=== PATIENT | male | born 1935 | race Asian ===

== ENCOUNTER 2018-10-02 15:12 | Inpatient (IN) | payer MEDICARE, OTHER ==
[~2018-10-02] VITALS: Ht 170.2 cm; Wt 51.2 kg
[~2018-10-02 15:12] MED LIST: ALBU18HF IH; BECL8.7A5 IH; CEPH-443 PO
[2018-10-02] MEDS ORDERED: ASPIRIN 81 MG TAB PO STA (15:52)
--- NOTE | 2018-10-02 16:13 | ERD ---
ER Documentation Chief Complaint Chief Complaint FROM PMD EVAL OF SOB, CP, AP. HX OF COPD HPI 83-year-old male with a history of COPD sent in by his primary care physician Dr. Izaguirre for evaluation. Patient has had a cough for 1 week with associated chest pain and shortness of breath. He denies any associated fevers. He has phlegm that is yellow without any blood. Chest pain is mostly with coughing. No recent travel. ROS All systems reviewed and are negative except as per history of present illness. Medications Home Meds Reported Medications Omeprazole* (Omeprazole*) 40 Mg Capsule.dr, 40 MG PO DAILY, #30 CAP 10/02/18 Montelukast Sodium* (Montelukast Sodium*) 10 Mg Tablet, 10 MG PO QHS, #30 TAB 10/02/18 Fluticasone-Vilanterol (Breo Ellipta Inhaler) 100-25 Mcg/Actuation Aer.pow.ba, 1 PUFF INHALATION DAILY, #1 INHALER 10/02/18 Tamsulosin Hcl* (Tamsulosin Hcl*) 0.4 Mg Cap.er.24h, 0.4 MG PO HS, CAP 10/02/18 Discontinued Reported Medications Albuterol Sulfate* (Ventolin HFA*) 18 Gm Hfa.aer.ad, 18 GM IH PRN 11/08/11 Beclomethasone Dip* (Qvar 80*) 7.3 Gm Inha, 7.3 GM IH BID 11/08/11 Discontinued Scripts Cephalexin* (Keflex*) 500 Mg Capsule, 500 MG PO BID for 7 Days, CAP Prov:LEONOR DICKINSON MD 04/04/15 Allergies Allergies: Coded Allergies: No Known Allergies (Verified Allergy, Unknown, 10/02/18) PMhx/Soc History of Surgery: Yes (prostate) Anesthesia Reaction: No Hx Neurological Disorder: No Hx Respiratory Disorders: Yes (ASTMA) Hx Cardiac Disorders: Yes (HIGH CHOLESTEROL) Hx Psychiatric Problems: No Hx Miscellaneous Medical Probl: No Hx Alcohol Use: No Hx Substance Use: No Hx Tobacco Use: Yes (quit 2002) FmHx Family History: No diabetes Physical Exam Vitals Vital Signs Date Temp Pulse Resp B/P (MAP) Pulse Ox O2 O2 Flow FiO2 Time Delivery Rate 10/02/18 Nasal 2 16:20 Cannula 10/02/18 99.4 91 19 141/63 94 15:14 (89) Physical Exam Const: No acute distress, nontoxic Head: Atraumatic Eyes: Normal Conjunctiva ENT: Normal External Ears, Nose and Mouth. Neck: Full range of motion. No meningismus. Resp: Diminished breath sounds at the bases, left worse than right. No wheezing or rales Cardio: Regular rate and rhythm, no murmurs Abd: Soft, non tender, non distended. Normal bowel sounds Skin: No petechiae or rashes Back: No midline or flank tenderness Ext: No cyanosis, or edema Neur: Awake and alert Psych: Normal Mood and Affect Result Diagram: 10/02/18 1619 10/02/18 1619 Results 24 hrs Laboratory Tests Test 10/02/18 16:19 White Blood Count 13.4 10^3/ul Red Blood Count 3.18 10^6/ul Hemoglobin 9.3 g/dl Hematocrit 29.3 % Mean Corpuscular Volume 92.1 fl Mean Corpuscular Hemoglobin 29.2 pg Mean Corpuscular Hemoglobin Concent 31.7 g/dl Red Cell Distribution Width 12.9 % Platelet Count 380 10^3/UL Mean Platelet Volume 8.2 fl Immature Granulocytes % 0.700 % Neutrophils % 92.4 % Lymphocytes % 3.2 % Monocytes % 3.3 % Eosinophils % 0.1 % Basophils % 0.3 % Nucleated Red Blood Cells % 0.0 /100WBC Immature Granulocytes # 0.100 10^3/ul Neutrophils # 12.3 10^3/ul Lymphocytes # 0.4 10^3/ul Monocytes # 0.4 10^3/ul Eosinophils # 0.0 10^3/ul Basophils # 0.0 10^3/ul Nucleated Red Blood Cells # 0.0 10^3/ul Sodium Level 139 mmol/L Potassium Level 4.3 mmol/L Chloride Level 102 mmol/L Carbon Dioxide Level 26 mmol/L Anion Gap 11 Blood Urea Nitrogen 37 mg/dl Creatinine 2.82 mg/dl Est Glomerular Filtrat Rate mL/min mL/min Glucose Level 139 mg/dl Calcium Level 9.3 mg/dl Troponin I < 0.012 ng/ml Current Medications Medications Dose Sig/Lj Start Time Status Last (Trade) Ordered Route PRN Stop Time Admin Dose Reason Admin Aspirin 162 mg ONCE STAT 10/02/18 DC 10/02/18 (Aspirin) PO 15:52 16:02 10/02/18 15:53 Sodium 1,420 ml BOLUS OVER 2 10/02/18 DC 10/02/18 Chloride HOURS STAT 16:48 17:03 (NS) IV* 10/02/18 16:50 Ceftriaxone 50 ml @ ONCE STAT 10/02/18 DC 10/02/18 Sodium 100 mls/hr IVPB 16:48 17:00 10/02/18 17:17 Azithromycin 250 ml @ ONCE STAT 10/02/18 DC 10/02/18 250 mls/hr IV 16:48 17:36 10/02/18 17:47 Procedures/MDM EMERGENT LABS AND DIAGNOSTIC STUDIES: Lab Results above were reviewed and interpreted by me. CBC: Leukocytosis, mild anemia BMP: Elevated BUN and creatinine, consistent with renal insufficiency of unknown chronicity. No evidence of electrolyte abnormality, hypoglycemia Troponin within normal limits, not indicative of cardiac ischemia Lactate within normal limits without evidence of sepsis or tissue hypoperfusion 12-lead EKG #1 was interpreted by Roxie Venegas MD: Normal Sinus Rhythm with ventricular rate of 87 beats per minute Normal axis Normal intervals Diffuse ST depression with no ST elevations. No acute STEMI but abnormal EKG with possible ischemia 12-lead EKG #2 was interpreted by Roxie Venegas MD: Normal Sinus Rhythm with ventricular rate of 87 beats per minute Normal axis Normal intervals Diffuse ST depression with no ST elevations. No acute STEMI but abnormal EKG with possible ischemia Radiology Results as interpreted by Radiology below were reviewed by Dorene Venegas MD: Chest x-ray: Bilateral pneumonia Initial Nursing notes reviewed. Previous Medical Records requested via the Electronic Health Record. EMERGENCY DEPARTMENT COURSE / MEDICAL DECISION MAKING: Patient is presenting with bilateral pneumonia on chest x-ray with no evidence of bronchospasm on exam. There is no evidence of severe sepsis or septic shock. IV fluids and broad-spectrum antibiotics were given. I doubt acute coronary syndrome. There is no sign of COPD exacerbation at this time. Patient's infectious symptoms have not stabilized and the patient is at risk of rapid decompensation. The patient will be admitted for careful hydration, antibiotic therapy, and infectious source control. Severe Sepsis Assessment: Infectious Source: Community acquired pneumonia End organ damage indicated by: Home Staging Specialist > 2.0 Severe Sepsis Managment: Blood Cultures X 2 before broad spectrum antibiotics initiated within 3 hours of recognition. 30 ml/kg NS bolus Completed Initial Lactate: Normal Repeat Lactate not indicated as initial < 2.0 Critical Care: Time: 35 minutes Treatments/Evaluations: Emergent fluid management, while maintaining close respiratory support. Immediate broad spectrum antibiotic therapy. Simultaneous assessment for possible sources in order to direct therapy. Consideration for invasive and chemical support to prevent respiratory or cardiac collapse. Septic Shock Assessment (1 hour post 30 ml/kg fluid bolus): Hypotension (SBP < 90 or 40 mmHg drop, MAP < 65): No Lactic acid > 4.0 no Accepting Care Team: Current data and ongoing care discussed. Time: Time of admission Primary Provider: Dr. Izaguirre Departure Diagnosis: Primary Impression: Sepsis Sepsis type: sepsis due to unspecified organism Qualified Codes: A41.9 - Sepsis, unspecified organism Additional Impressions: Community acquired pneumonia Laterality: unspecified laterality Qualified Codes: J18.9 - Pneumonia, unspecified organism Renal failure Renal failure chronicity: unspecified chronicity Qualified Codes: N19 - Unspecified kidney failure Condition: ARPAN Mccain MD Oct 02, 2018 16:13
[2018-10-02] MEDS ORDERED: TAMS0.4C2 PO (16:17)
[2018-10-02] MEDS ORDERED: MONT10TA24 PO (16:18)
[2018-10-02] MEDS ORDERED: FLUT1AER INHALATION (16:18)
[2018-10-02] MEDS ORDERED: OMEP40CA6 PO (16:19)
[2018-10-02] MEDS ORDERED: AZITHROMYCIN 500MG/NS (PMX) 250 ML IV STA (16:48)
[2018-10-02] MEDS ORDERED: SODIUM CHLORIDE 0.9% 1L BAG IV* STA (16:48)
[2018-10-02] MEDS ORDERED: CEFTRIAXONE 1 GM/50 ML (PMX) 50 ML IVPB STA (16:48)
[2018-10-02] MEDS ORDERED: ACETAMINOPHEN 325 MG TAB PO PRN (17:30)
[2018-10-02] MEDS ORDERED: ONDANSETRON 4 MG INJ IV PRN (17:30)
--- NOTE | 2018-10-02 19:00 | NUR ---
Patient arrived to floor with family at bedside. VSS. Oriented to room. No voiced complaints at this time
[2018-10-02] MEDS ORDERED: ACETAMINOPHEN 500 MG TAB PO PRN (20:00)
--- NOTE | 2018-10-02 20:00 | NUR ---
PATIENT ARRIVED ON THE UNIT AT 1900 . PATIENT ALERT AND ORIENTED . DENIES ANY PAIN AND DISCOMFORT AT THIS TIME. V/S STABLE .ORIENTED PATIENT TO THE ENVIRONMENT . CALL LIGHTS WITHIN REACH . BED IN LOW POSITION . INSTRUCTED PATIENT TO USE CALL LIGHTS FOR ASSISTANCE . PATIENT VERBALIZED UNDERSTANDING . NOTIFIED DR. VIVAS OF PATIENTS ADMISSION TO THE UNIT . ADMISSION ORDERS RECEIVED AND CARRIED OUT . ROUTINE ADMISSION CARE RENDERED . ASSESSMENT DONE . SKIN ASSESSMENT AND PHOTOS TAKEN DONE PER POLICY . WILL CONTINUE TO MONITOR .
[2018-10-02 20:15] VITALS: Ht 170.2 cm; Wt 51.2 kg
[2018-10-02 20:27] VITALS: BP 138/65; PULSE 86; RESP 18
[2018-10-02] MEDS: ALBUTEROL/IPRATROPIUM (NEB) 3 ML AMP HHN SCH (20:44)
[2018-10-02] MEDS: D5W-0.45 NACL + KCL 20 MEQ 1,000 ML IV SCH (21:26)
[2018-10-02] MEDS: TAMSULOSIN (SR) 0.4 MG CAP PO SCH (21:26)
[2018-10-02] MEDS: MONTELUKAST 10 MG TAB PO SCH (21:26)
[2018-10-02] MEDS: FLUTICASONE/VILANTEROL 100-25 INH SCH (21:27)
[2018-10-02] MEDS: ENOXAPARIN 30 MG/0.3 ML SYG SC SCH (21:30)
[2018-10-03 03:03] VITALS: BP 111/63; PULSE 71; RESP 20
[2018-10-03] MEDS: PANTOPRAZOLE (EC) 40 MG TAB PO SCH (06:10)
[2018-10-03] MEDS: FLUTICASONE/VILANTEROL 100-25 INH SCH (08:19)
[2018-10-03] MEDS: ALBUTEROL/IPRATROPIUM (NEB) 3 ML AMP HHN SCH ×4 (08:36→20:18)
[2018-10-03 08:46] VITALS: BP 120/60; PULSE 65; RESP 18
--- NOTE | 2018-10-03 09:42 | NUR ---
RN NOTES Called and spoke with Dr Izaguirre, notified bout patient's hemoglobin level of 7.0, HCT 22.1, MD gave an order to transfuse 1 unit of packed red blood cells, CBC, BMP in AM. MD was also notified about the cough which is dry and tight, MD gave an order to give Mucinex 600 mg tablet every 6 hours as needed. Patient was made aware of the order and signed the consent for transfusion. Will continue to monitor.
[2018-10-03] MEDS: D5W-0.45 NACL + KCL 20 MEQ 1,000 ML IV SCH (11:59)
--- NOTE | 2018-10-03 12:00 | NUR ---
RN NOTES Blood transfusion was started after carefully checking patient's vital signs, BP 130/60, pulse 73, respirations 18, temperature 98.6, O2 saturation 99% on room air. Patient is stable, denies of any pain anywhere, no SOB, no fever noted. Will continue to monitor.
[2018-10-03] MEDS: GUAIFENESIN LA 600 MG TABSR PO PRN ×2 (12:28→20:34)
--- NOTE | 2018-10-03 12:56 | PN ---
Date/Time of Note Date/Time of Note DATE: 10/03/18 TIME: 12:52 Assessment/Plan VTE Prophylaxis Risk score (from [facility])>0 risk: 6 SCD applied (from [facility]): Yes Pharmacological prophylaxis: LMWH Lines/Catheters IV [facility]ter Type (from [facility] Saline Lock Urinary Cath still in place: No Assessment/Plan Assessment/Plan A: bilateral pneumonia anemia ckd copd bronchiectasis P: transfuse prbc monitor Hb, check fe studies cont abx careful hydration cont current rx Result Diagram: 10/03/18 0450 10/03/18 0450 Results 24hrs Laboratory Tests Test 10/02/18 16:19 10/02/18 17:26 10/02/18 23:12 10/03/18 04:50 White Blood Count 13.4 H 6.8 # Red Blood Count 3.18 L 2.38 #L Hemoglobin 9.3 L 7.0 #L Hematocrit 29.3 L 22.1 #L Mean Corpuscular 92.1 92.9 Volume Mean Corpuscular 29.2 29.4 Hemoglobin Mean Corpuscular 31.7 L 31.7 L Hemoglobin Concent Red Cell 12.9 13.0 Distribution Width Platelet Count 380 316 Mean Platelet Volume 8.2 8.9 Immature 0.700 H 0.400 Granulocytes % Neutrophils % 92.4 H 81.3 H Lymphocytes % 3.2 L 10.1 L Monocytes % 3.3 6.8 Eosinophils % 0.1 0.7 Basophils % 0.3 0.7 Nucleated Red Blood 0.0 0.0 Cells % Immature 0.100 H 0.030 Granulocytes # Neutrophils # 12.3 H 5.5 Lymphocytes # 0.4 L 0.7 L Monocytes # 0.4 0.5 Eosinophils # 0.0 0.1 Basophils # 0.0 0.1 Nucleated Red Blood 0.0 0.0 Cells # Sodium Level 139 138 Potassium Level 4.3 3.7 Chloride Level 102 104 Carbon Dioxide Level 26 24 Anion Gap 11 10 Blood Urea Nitrogen 37 H 35 H Creatinine 2.82 H 2.50 H Est Glomerular Filtrat Rate mL/min Glucose Level 139 108 Calcium Level 9.3 8.0 L Troponin I < 0.012 0.014 0.012 POC Venous Lactate 1.9 Lactic Acid Level 0.8 Creatine Kinase 33 34 Creatine Kinase 1.1 1.1 Index Creatinine Kinase MB 0.35 0.37 (Mass) Total Bilirubin 0.0 L Direct Bilirubin 0.00 Indirect Bilirubin 0.0 Aspartate Amino 54 H Transf (AST/SGOT) Alanine 59 Aminotransferase (AL T/SGPT) Alkaline Phosphatase 94 Total Protein 6.0 L Albumin 2.6 L Globulin 3.40 H Albumin/Globulin 0.76 Ratio Subjective 24 Hr Interval Summary Free Text/Dictation Pt feeling somewhat better today. Still with a lot of cough, just given mucinex. Nebulizer, inhaler help. CP resolved, no sob. Appetite improved. No abd pain, diarrhea. In process of receiving 1unit prbc for low Hb. Exam/Review of Systems Vital Signs Vitals Vital Signs Date Temp Pulse Resp B/P (MAP) Pulse Ox O2 O2 Flow FiO2 Time Delivery Rate 10/03/18 97.7 65 18 120/60 98 Room Air 08:46 (80) 10/03/18 21 08:37 10/02/18 2 16:20 Intake and Output 10/02/18 10/02/18 10/03/18 1414:59 22:59 06:59 IntakeIntake Total 200 ml 750 ml OutputOutput Total 400 ml BalanceBalance 200 ml 350 ml Exam gen- ill appearing, in nad heent- anicteric lungs- sl decreased bs left base, otherwise clear heart- RRR abd- +BS, soft ext- no edema Medications Medications Current Medications Fluticasone/ Vilanterol (Breo Ellipta 100-25 Mcg Inh) 1 inh DAILY INH Last administered on 10/03/18at 08:19; Admin Dose 1 INH; Start 10/02/18 at 21:00 Montelukast Sodium (Singulair) 10 mg QHS PO Last administered on 10/02/18at 21:2 6; Admin Dose 10 MG; Start 10/02/18 at 21:00 Tamsulosin HCl (Flomax) 0.4 mg HS PO Last administered on 10/02/18at 21:26; Admin Dose 0.4 MG; Start 10/02/18 at 21:00 Pantoprazole (Protonix Tab) 40 mg DAILY@06 PO Last administered on 10/03/18at 06:10; Admin Dose 40 MG; Start 10/03/18 at 06:00 Azithromycin 250 mg/Sodium Chloride 250 ml @ 250 mls/hr Q24H IVPB ; Start 10/03/18 at 18:00 Ceftriaxone Sodium 50 ml @ 100 mls/hr Q24H IVPB ; Start 10/03/18 at 17:00 Enoxaparin Sodium (Lovenox) 30 mg Q24H SC Last administered on 10/02/18at 21:30; Admin Dose 30 MG; Start 10/02/18 at 20:00 Potassium Chloride/Dextrose/ Sod Cl 1,000 ml @ 75 mls/hr [id number] IV Last administered on 10/03/18at 11:59; Admin Dose 75 MLS/HR; Start 10/02/18 at 20:00 Acetaminophen (Tylenol Tab) 500 mg Q6H PRN PO MILD PAIN(1-3)OR ELEVATED TEMP; Start 10/02/18 at 20:00 Albuterol/ Ipratropium (Duoneb) 3 ml Q4HWA RESP THERAPY HHN Last administered on 10/03/18at 12:50; Admin Dose 3 ML; Start 10/02/18 at 21:00 Guaifenesin (Mucinex) 600 mg Q6 PRN PO COUGH Last administered on 10/03/18at 12:28; Admin Dose 600 MG; Start 10/03/18 at 10:00 BALBINA VIVAS MD Oct 03, 2018 12:56
[2018-10-03 14:00] VITALS: BP 138/60; PULSE 80; RESP 18
[2018-10-03 14:32] VITALS: BP 138/60; PULSE 80; RESP 18
--- NOTE | 2018-10-03 14:37 | HP ---
DATE OF ADMISSION: 10/02/2018 CHIEF COMPLAINT: Productive cough for 1 week. HISTORY OF PRESENT ILLNESS: The patient is an 83-year-old O[place]i male with a history of COPD, bron chiectasis who complains of a 1-week history of productive cough which has been progressive. Mucus i s green. The patient has some chest pain, especially with cough, some shortness of breath. Denies a ny congestion, rhinorrhea. He has had some sore throat. Denies any muscle aches, fever or night swe ats. He has had some chills. Appetite has been decreased significantly. The patient feels overall weak, had difficulty getting out of bed yesterday, has had some ill contacts. The patient was sent f rom the office to the ER yesterday. X-ray showed bilateral infiltrates, and the patient was started on treatment for pneumonia. He is admitted for further management. PAST MEDICAL HISTORY: COPD, bronchiectasis, hypertension, hyperlipidemia, chronic kidney disease sta ge III, anemia, BPH, allergies, GERD, proteinuria, monoclonal gammopathy of unknown significance. MEDICATIONS: 1. Breo 100 mcg, 1 inhalation daily. 2. Simvastatin 40 mg daily. 3. Albuterol p.r.n. 4. Flomax 0.4 mg daily. 5. Omeprazole 20 mg daily. 6. Singulair 10 mg daily. ALLERGIES: NO KNOWN DRUG ALLERGIES. OPERATIONS: Inguinal hernia. SOCIAL HISTORY: No tobacco for greater than 10 years. He has a prior [id number] history. Denies any alcohol use. 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 FAMILY HISTORY: Father at 85 from heart disease. Mother at 87 from old age. Four brothers, . There is heart disease, lung disease amongst the brothers, 2 sisters with d gumaro. A son at 18. He was killed. Two daughters who are alive and well. REVIEW OF SYSTEMS: GENERAL: The patient reports generalized fatigue, decreased appetite with some weight loss, no fever s, but he has had some chills, no night sweats, no other general complaints. HEENT: The patient denies any headache, congestion, rhinorrhea. He has had some sore throat. No ot her HEENT complaints. RESPIRATORY: As noted in the HPI. CARDIOVASCULAR: No palpitations, dizziness. He has had chest pain as noted in the HPI. GASTROINTESTINAL: The patient denies any abdominal pain, nausea, vomiting, bright red blood per rect um, melena, diarrhea, constipation, or other GI complaints. GENITOURINARY: The patient denies any dysuria, frequency, or other complaints. NEUROLOGIC: The patient denies any numbness, tingling, focal weakness, or other focal neurologic sym ptoms. PHYSICAL EXAMINATION: VITAL SIGNS: On admission, temperature 98.3, pulse 89, blood pressure 145/57, pulse ox 98% on 2 lite rs. GENERAL APPEARANCE: This is an ill-appearing, elderly [place]i male. He is in no acute distress. HEENT: Normocephalic, atraumatic. Sclerae anicteric. Oropharynx mucosa slightly dry, otherwise rigo ar. NECK: Supple, no adenopathy, no bruits. LUNGS: There are decreased breath sounds in the left base. A few scattered crackles in the bases. CARDIAC: Regular rate and rhythm. ABDOMEN: Bowel sounds are present. Abdomen is soft, nontender, nondistended. EXTREMITIES: Without cyanosis, clubbing or edema. NEUROLOGICAL: The patient is awake, alert, oriented x3. No focal neurologic findings. DATA ON ADMISSION: Chest x-ray showed bilateral lower lung interstitial infiltrates, small left pleu ral effusion, mild left basilar atelectasis, hyperinflation. White count was 13.4, hemoglobin 9.3, h ematocrit 29.3, platelets 380. Sodium 139, potassium 4.3, chloride 102, bicarbonate 26, BUN 37, crea tinine 2.82, glucose 139. Lactate 1.9. Troponin less than 0.012. IMPRESSION: 1. Bilateral pneumonia. 2. Chronic obstructive pulmonary disease. 3. Bronchiectasis. 4. Chronic kidney disease stage III. 5. Anemia. PLAN: 1. Admit to med/surg. 2. IV antibiotics. 3. Blood cultures. 4. Careful hydration. 5. Continue outpatient medications. 6. Monitor labs. Dictated By: BALBINA NICOLE/ALLYSSA Conf#: [id number] DID#: [id number]
[2018-10-03] MEDS: CEFTRIAXONE 1 GM/50 ML (PMX) 50 ML IVPB SCH (16:34)
[2018-10-03] MEDS: AZITHROMYCIN 250 MG in SOD CHLORIDE 0.9% 250 ML IVPB SCH (18:04)
--- NOTE | 2018-10-03 18:16 | NUR ---
RN NOTES Patient has no significant change but still noted with cough. Patient is status post 1 unit packed RBC. infused and well tolerated. Vital signs remained stable all throughout the course. Patient denied any pain upon each assessment. No new skin issues identified. Patient was seen by Dr Izaguirre upon rounds with labs ordered in am. No further order noted. Kept comfortable and safe. Needs attended. at bedside. Will endorse to film processing shift supervisor for continuity of care.
[2018-10-03 20:00] VITALS: BP 119/58; PULSE 84; RESP 18
[2018-10-03] MEDS: ENOXAPARIN 30 MG/0.3 ML SYG SC SCH (20:07)
[2018-10-03] MEDS: TAMSULOSIN (SR) 0.4 MG CAP PO SCH (20:29)
[2018-10-03] MEDS: MONTELUKAST 10 MG TAB PO SCH (20:29)
[2018-10-04 02:00] VITALS: BP 118/55; PULSE 75; RESP 19
[2018-10-04] MEDS: PANTOPRAZOLE (EC) 40 MG TAB PO SCH (05:32)
[2018-10-04] MEDS: D5W-0.45 NACL + KCL 20 MEQ 1,000 ML IV SCH ×2 (06:07→12:00)
[2018-10-04 09:11] VITALS: BP 137/63; PULSE 70; RESP 18
[2018-10-04] MEDS: ALBUTEROL/IPRATROPIUM (NEB) 3 ML AMP HHN SCH ×4 (09:23→20:21)
[2018-10-04] MEDS: FLUTICASONE/VILANTEROL 100-25 INH SCH (09:44)
--- NOTE | 2018-10-04 12:01 | PN ---
Date/Time of Note Date/Time of Note DATE: 10/04/18 TIME: 11:56 Assessment/Plan VTE Prophylaxis Risk score (from [facility])>0 risk: 5 SCD applied (from [facility]): Yes Pharmacological prophylaxis: LMWH Lines/Catheters IV [facility]from [facility] Saline Lock Urinary Cath still in place: No Assessment/Plan Assessment/Plan A: bilateral pneumonia ckd urinary retention anemia copd bronchiectasis P: cagle UA, urine cx cont abx urology and renal consults monitor labs Result Diagram: 10/04/1851810/04/18518 Results 24hrs Laboratory Tests Test 10/04/18 05:19 White Blood Count 6.8 Red Blood Count 2.82 L Hemoglobin 8.4 L Hematocrit 25.7 L Mean Corpuscular Volume 91.1 Mean Corpuscular Hemoglobin 29.8 Mean Corpuscular Hemoglobin Concent 32.7 Red Cell Distribution Width 13.7 Platelet Count 288 Mean Platelet Volume 8.6 Immature Granulocytes % 0.400 Neutrophils % 79.1 H Lymphocytes % 10.3 L Monocytes % 6.4 Eosinophils % 3.2 Basophils % 0.6 Nucleated Red Blood Cells % 0.0 Immature Granulocytes # 0.030 Neutrophils # 5.4 Lymphocytes # 0.7 L Monocytes # 0.4 Eosinophils # 0.2 Basophils # 0.0 Nucleated Red Blood Cells # 0.0 Sodium Level 139 Potassium Level 3.8 Chloride Level 106 Carbon Dioxide Level 24 Anion Gap 9 Blood Urea Nitrogen 29 H Creatinine 2.81 H Est Glomerular Filtrat Rate mL/min Glucose Level 107 Calcium Level 8.2 L Iron Level 46 Total Iron Binding Capacity 159 L Percent Iron Saturation 29 Ferritin 597.0 H Subjective 24 Hr Interval Summary Free Text/Dictation Pt with hx urinary retention feels like retaining urine again. Able to urinate small amounts but bladder area seems full, some discomfort. Creatinine increased slightly. Respiratory status improved. Cough less. No cp, sob, wheeze. Exam/Review of Systems Vital Signs Vitals Vital Signs Date Temp Pulse Resp B/P (MAP) Pulse Ox O2 O2 Flow FiO2 Time Delivery Rate 10/04/18 79 16 93 21 09:24 10/04/18 97.8 137/63 Room Air 09:11 (87) 10/02/18 2 16:20 Intake and Output 10/03/18 10/03/18 10/04/18 1515:00 23:00 07:00 IntakeIntake Total 835 ml 1300 ml 1350 ml OutputOutput Total 800 ml 400 ml 1400 ml BalanceBalance 35 ml 900 ml -50 ml Exam gen- nad, nontoxic lungs- few basilar crackles heart- RRR abd- sl distension, mild discomfort and fullness mid low abd ext- no edema Medications Medications Current Medications Fluticasone/ Vilanterol (Breo Ellipta 100-25 Mcg Inh) 1 inh DAILY INH Last administered on 10/04/18 09:44; Admin Dose 1 INH; Start 10/02/18 at 21:00 Montelukast Sodium (Singulair) 10 mg QHS PO Last administered on 10/03/18 20:29; Admin Dose 10 MG; Start 10/02/18 at 21:00 Tamsulosin HCl (Flomax) 0.4 mg HS PO Last administered on 10/03/18 20:29; Admin Dose 0.4 MG; Start 10/02/18 at 21:00 Pantoprazole (Protonix Tab) 40 mg DAILY@06 PO Last administered on 10/04/18 05:32; Admin Dose 40 MG; Start 10/03/18 at 06:00 Azithromycin 250 mg/Sodium Chloride 250 ml @ 250 mls/hr Q24H IVPB Last administered on 10/03/18 18:04; Admin Dose 250 MLS/HR; Start 10/03/18 at 18:00 Ceftriaxone Sodium 50 ml @ 100 mls/hr Q24H IVPB Last administered on 10/03/18 16:34; Admin Dose 100 MLS/HR; Start 10/03/18 at 17:00 Enoxaparin Sodium (Lovenox) 30 mg Q24H SC Last administered on 10/03/18 20:07; Admin Dose 30 MG; Start 10/02/18 at 20:00 Potassium Chloride/Dextrose/ Sod Cl 1,000 ml @ 75 mls/hr [id number] IV Last administered on 10/04/18 06:07; Admin Dose 75 MLS/HR; Start 10/02/18 at 20:00 Acetaminophen (Tylenol Tab) 500 mg Q6H PRN PO MILD PAIN(1-3)OR ELEVATED TEMP; Start 10/02/18 at 20:00 Albuterol/ Ipratropium (Duoneb) 3 ml Q4HWA RESP THERAPY HHN Last administered on 10/04/18at 09:23; Admin Dose 3 ML; Start 10/02/18 at 21:00 Guaifenesin (Mucinex) 600 mg Q6 PRN PO COUGH Last administered on 10/03/18at 20:34; Admin Dose 600 MG; Start 10/03/18 at 10:00 BALBINA VIVAS MD Oct 04, 2018 12:01
--- NOTE | 2018-10-04 14:00 | NUR ---
Spoke with Dr. Izaguirre, made aware patient is having urinary retention, not emptying his bladder completely. With order to insert a Carlisle catheter and send urine for culture. Patient tolerated well the insertion of catheter, 700 mls of clear yellow urine observed. Urine for culture was sent.
[2018-10-04 14:32] VITALS: BP 130/60; PULSE 74; RESP 18
[2018-10-04] MEDS: CEFTRIAXONE 1 GM/50 ML (PMX) 50 ML IVPB SCH (17:55)
--- NOTE | 2018-10-04 19:00 | NUR ---
Patient on bed rest, alert and oriented, vital signs stable. Denies pain at this time. With cagle catheter draining clear yellow urine. Patient continue with IV antibiotics for pneumonia. Patient ambulatory with assist. Will continue with care plan.
[2018-10-04] MEDS: AZITHROMYCIN 250 MG in SOD CHLORIDE 0.9% 250 ML IVPB SCH (19:29)
[2018-10-04 19:50] VITALS: BP 131/60; PULSE 91; RESP 20
[2018-10-04] MEDS: ENOXAPARIN 30 MG/0.3 ML SYG SC SCH (20:42)
[2018-10-04] MEDS: MONTELUKAST 10 MG TAB PO SCH (20:42)
[2018-10-04] MEDS: TAMSULOSIN (SR) 0.4 MG CAP PO SCH (20:43)
[2018-10-05] MEDS: D5W-0.45 NACL + KCL 20 MEQ 1,000 ML IV SCH (00:11)
[2018-10-05 02:10] VITALS: BP 132/60; PULSE 90; RESP 20
[2018-10-05] MEDS: PANTOPRAZOLE (EC) 40 MG TAB PO SCH (05:57)
--- NOTE | 2018-10-05 07:01 | NUR ---
no acute changes, pt remained afebrile with vss. on cagle catheter drains cl;ear yellowish urine. denies any pain and discomfort. slept through the night. needs attended to and anticipated with hourly rounding done. will endorse accordingly.
[2018-10-05 08:00] VITALS: BP 154/68; PULSE 75; RESP 18
[2018-10-05] MEDS: ALBUTEROL/IPRATROPIUM (NEB) 3 ML AMP HHN SCH ×4 (08:50→21:19)
[2018-10-05] MEDS: FLUTICASONE/VILANTEROL 100-25 INH SCH (09:24)
--- NOTE | 2018-10-05 13:40 | PN ---
Date/Time of Note Date/Time of Note DATE: 10/05/18 TIME: 13:36 Assessment/Plan VTE Prophylaxis Risk score (from Ns)>0 risk: 6 SCD applied (from Ns): Yes Pharmacological prophylaxis: LMWH Lines/Catheters IV Catheter Type (from [facility]): Saline Lock Urinary Cath still in place: Yes Reason Cath still needed: urinary retention Assessment/Plan Assessment/Plan A: bilateral pneumonia ckd urinary retention anemia copd bronchiectasis P: urology eval pending d/c IVF cont abx cont other rx Result Diagram: 10/05/18 0540 10/05/18 0540 Results 24hrs Laboratory Tests Test 10/04/18 14:00 10/05/18 05:40 Urine Color STRAW Urine Clarity CLEAR Urine pH 5.0 Urine Specific Clawson 1.005 Urine Ketones NEGATIVE Urine Nitrite NEGATIVE Urine Bilirubin NEGATIVE Urine Urobilinogen NEGATIVE Urine Leukocyte Esterase NEGATIVE Urine Microscopic RBC 29 H Urine Microscopic WBC 1 Urine Bacteria FEW A Urine Hemoglobin 3+ H Urine Glucose NEGATIVE Urine Total Protein 1+ H White Blood Count 5.4 # Red Blood Count 2.86 L Hemoglobin 8.4 L Hematocrit 26.0 L Mean Corpuscular Volume 90.9 Mean Corpuscular Hemoglobin 29.4 Mean Corpuscular Hemoglobin Concent 32.3 Red Cell Distribution Width 13.8 Platelet Count 299 Mean Platelet Volume 8.5 Immature Granulocytes % 0.400 Neutrophils % 74.1 Lymphocytes % 11.5 L Monocytes % 7.2 Eosinophils % 5.9 Basophils % 0.9 Nucleated Red Blood Cells % 0.0 Immature Granulocytes # 0.020 Neutrophils # 4.0 Lymphocytes # 0.6 L Monocytes # 0.4 Eosinophils # 0.3 Basophils # 0.1 Nucleated Red Blood Cells # 0.0 Sodium Level 140 Potassium Level 3.9 Chloride Level 109 Carbon Dioxide Level 23 Anion Gap 8 Blood Urea Nitrogen 22 H Creatinine 2.68 H Est Glomerular Filtrat Rate mL/min Glucose Level 108 Calcium Level 8.4 Subjective 24 Hr Interval Summary Free Text/Dictation Pt had cagle placed for urinary retention, feeling better. Breathing improving, no cp, sob. Cough decreased. No abd pain, diarrhea. Appetite improved, trying to drink plenty of fluids. Exam/Review of Systems Vital Signs Vitals Vital Signs Date Temp Pulse Resp B/P (MAP) Pulse Ox O2 O2 Flow FiO2 Time Delivery Rate 10/05/18 76 18 98 21 12:37 10/05/18 98.3 154/68 Room Air 08:00 (96) 10/02/18 2 16:20 Intake and Output 10/04/18 10/04/18 10/05/18 1515:00 23:00 07:00 IntakeIntake Total 1215 ml 680 ml 980 ml OutputOutput Total 450 ml 800 ml 1900 ml BalanceBalance 765 ml -120 ml -920 ml Exam gen- nad, nontoxic lungs- few basilar crackles heart- RRR abd- +BS, soft, nontender ext- no edema Medications Medications Current Medications Fluticasone/ Vilanterol (Breo Ellipta 100-25 Mcg Inh) 1 inh DAILY INH Last administered on 10/05/18 09:24; Admin Dose 1 INH; Start 10/02/18 at 21:00 Montelukast Sodium (Singulair) 10 mg QHS PO Last administered on 10/04/18 20:42; Admin Dose 10 MG; Start 10/02/18 at 21:00 Tamsulosin HCl (Flomax) 0.4 mg HS PO Last administered on 10/04/18 20:43; Admin Dose 0.4 MG; Start 10/02/18 at 21:00 Pantoprazole (Protonix Tab) 40 mg DAILY@06 PO Last administered on 10/05/18 05:57; Admin Dose 40 MG; Start 10/03/18 at 06:00 Azithromycin 250 mg/Sodium Chloride 250 ml @ 250 mls/hr Q24H IVPB Last administered on 10/04/18 19:29; Admin Dose 250 MLS/HR; Start 10/03/18 at 18:00 Ceftriaxone Sodium 50 ml @ 100 mls/hr Q24H IVPB Last administered on 10/04/18 17:55; Admin Dose 100 MLS/HR; Start 10/03/18 at 17:00 Enoxaparin Sodium (Lovenox) 30 mg Q24H SC Last administered on 10/04/18 20:42; Admin Dose 30 MG; Start 10/02/18 at 20:00 Potassium Chloride/Dextrose/ Sod Cl 1,000 ml @ 60 mls/hr [id number] IV Last administered on 10/05/18 00:11; Admin Dose 60 MLS/HR; Start 10/02/18 at 20:00 Acetaminophen (Tylenol Tab) 500 mg Q6H PRN PO MILD PAIN(1-3)OR ELEVATED TEMP; Start 10/02/18 at 20:00 Albuterol/ Ipratropium (Duoneb) 3 ml Q4HWA RESP THERAPY HHN Last administered on 10/05/18at 12:35; Admin Dose 3 ML; Start 10/02/18 at 21:00 Guaifenesin (Mucinex) 600 mg Q6 PRN PO COUGH Last administered on 10/03/18at 20:34; Admin Dose 600 MG; Start 10/03/18 at 10:00 BALBINA VIVAS MD Oct 05, 2018 13:40
[2018-10-05 14:09] VITALS: BP 140/66; PULSE 81; RESP 18
[2018-10-05] MEDS: CEFTRIAXONE 1 GM/50 ML (PMX) 50 ML IVPB SCH (16:17)
[2018-10-05] MEDS: AZITHROMYCIN 250 MG in SOD CHLORIDE 0.9% 250 ML IVPB SCH (17:22)
--- NOTE | 2018-10-05 17:41 | NUR ---
RN NOTES Patient remained stable, Vital signs WNL. Breathing unlabored , cough has greatly improved. Seen by Dr Izaguirre with labs ordered in AM. Still on antibiotic therapy. Patient denies pain or discomfort. No signs of new infection noted. Ne new skin issues identified. Hourly rounding provided. Kept comfortable and safe. Needs attended and anticipated. Will endorse to side trimmer for continuity of care.
--- NOTE | 2018-10-05 18:09 | CONS ---
Date/Time of Note Date/Time of Note DATE: 10/05/18 TIME: 18:01 Assessment/Plan Assessment/Plan Hospital Course 83-year-old male who is known to me from before presented to the hospital with difficulty breathing because of pneumonia. He is known to have a COPD and it appears every time his COPD gets worse and he takes more medications for it he develops urinary retention even though he is on tamsulosin. He was voiding well prior to the admission and for 2 days after his admission was still urinating okay however yesterday he started having difficulty urinating and developed urinary retention and a Carlisle catheter was put in. Patient does have an indwelling Carlisle catheter for now. His urinary retention is most likely related to his pneumonia medications as these do have anticholinergic effect and that weakens the bladder contractions. For now we will keep the Carlisle catheter in and once he is stable he could go home with the Carlisle catheter and come to the office to have it removed. We shall continue his tamsulosin as well Result Diagram: 10/05/18 0540 10/05/18 0540 Results 24hrs Laboratory Tests Test 10/05/18 05:40 White Blood Count 5.4 # Red Blood Count 2.86 L Hemoglobin 8.4 L Hematocrit 26.0 L Mean Corpuscular Volume 90.9 Mean Corpuscular Hemoglobin 29.4 Mean Corpuscular Hemoglobin Concent 32.3 Red Cell Distribution Width 13.8 Platelet Count 299 Mean Platelet Volume 8.5 Immature Granulocytes % 0.400 Neutrophils % 74.1 Lymphocytes % 11.5 L Monocytes % 7.2 Eosinophils % 5.9 Basophils % 0.9 Nucleated Red Blood Cells % 0.0 Immature Granulocytes # 0.020 Neutrophils # 4.0 Lymphocytes # 0.6 L Monocytes # 0.4 Eosinophils # 0.3 Basophils # 0.1 Nucleated Red Blood Cells # 0.0 Sodium Level 140 Potassium Level 3.9 Chloride Level 109 Carbon Dioxide Level 23 Anion Gap 8 Blood Urea Nitrogen 22 H Creatinine 2.68 H Est Glomerular Filtrat Rate mL/min Glucose Level 108 Calcium Level 8.4 Consultation Date/Type/Reason Admit Date/Time Oct 02, 2018 at 17:24 Date of Consultation: Oct 05, 2018 Type of Consult Urology Reason for Consultation Urinary retention Requesting Provider: BALBINA VIVAS MD Hx of Present Illness 83-year-old male who is known to me from before presented to the hospital with difficulty breathing because of pneumonia. He is known to have a COPD and it appears every time his COPD gets worse and he takes more medications for it he develops urinary retention even though he is on tamsulosin. He was voiding well prior to the admission and for 2 days after his admission was still urinating okay however yesterday he started having difficulty urinating and developed urinary retention and a Carlisle catheter was put in. Constitutional: no complaints Eyes: no complaints Respiratory: cough, shortness of breath Cardiovascular: No chest pain Gastrointestinal: no complaints Genitourinary: other (Difficulty urinating and urinary retention) Musculoskeletal: no complaints Skin: no complaints Neurologic: no complaints Endocrine: no complaints Lymphatic: no complaints Psychological: no complaints Immunologic: no complaints Past Medical History Medical History: GERD, high cholesterol, hypertension, renal disease, other (COPD and anemia) Medications Current Medications Fluticasone/ Vilanterol (Breo Ellipta 100-25 Mcg Inh) 1 inh DAILY INH Last administered on 10/05/18 09:24; Admin Dose 1 INH; Start 10/02/18 at 21:00 Montelukast Sodium (Singulair) 10 mg QHS PO Last administered on 10/04/18 20:42; Admin Dose 10 MG; Start 10/02/18 at 21:00 Tamsulosin HCl (Flomax) 0.4 mg HS PO Last administered on 10/04/18 20:43; Admin Dose 0.4 MG; Start 10/02/18 at 21:00 Pantoprazole (Protonix Tab) 40 mg DAILY@06 PO Last administered on 10/05/18 05:57; Admin Dose 40 MG; Start 10/03/18 at 06:00 Azithromycin 250 mg/Sodium Chloride 250 ml @ 250 mls/hr Q24H IVPB Last administered on 10/05/18 17:22; Admin Dose 250 MLS/HR; Start 10/03/18 at 18:00 Ceftriaxone Sodium 50 ml @ 100 mls/hr Q24H IVPB Last administered on 10/05/18 16:17; Admin Dose 100 MLS/HR; Start 10/03/18 at 17:00 Enoxaparin Sodium (Lovenox) 30 mg Q24H SC Last administered on 10/04/18 20:42; Admin Dose 30 MG; Start 10/02/18 at 20:00 Acetaminophen (Tylenol Tab) 500 mg Q6H PRN PO MILD PAIN(1-3)OR ELEVATED TEMP; Start 10/02/18 at 20:00 Albuterol/ Ipratropium (Duoneb) 3 ml Q4HWA RESP THERAPY HHN Last administered on 10/05/18at 16:53; Admin Dose 3 ML; Start 10/02/18 at 21:00 Guaifenesin (Mucinex) 600 mg Q6 PRN PO COUGH Last administered on 10/03/18at 20:34; Admin Dose 600 MG; Start 10/03/18 at 10:00 Allergies: Coded Allergies: No Known Allergies (Verified Allergy, Unknown, 10/02/18) Past Surgical History Past Surgical Hx: other (Hernia repair) Social History Alcohol Use: rarely Smoking Status: Former smoker Drug Use: none Exam/Review of Systems Vital Signs Vitals Vital Signs Date Temp Pulse Resp B/P (MAP) Pulse Ox O2 O2 Flow FiO2 Time Delivery Rate 10/05/18 75 18 97 21 16:50 10/05/18 97.9 140/66 Room Air 14:09 (90) 10/02/18 2 16:20 Intake and Output 10/04/18 10/04/18 10/05/18 1515:00 23:00 07:00 IntakeIntake Total 1215 ml 680 ml 980 ml OutputOutput Total 450 ml 800 ml 1900 ml BalanceBalance 765 ml -120 ml -920 ml Exam Constitutional: alert, oriented Psych: no complaints Head: normocephalic Eyes: nl conjunctiva ENMT: nl external ears & nose Neck: supple, non-tender Respiratory: normal air movement; No wheezing Cardiovascular: No jugular venous distention (JVD) Gastrointestinal: soft, non-tender Genitourinary - Male: nl penis, nl scrotum, other (Rectal exam: Soft prostate mildly enlarged); No CVA tenderness Musculoskeletal: nl extremities to inspection Extremities: No calf tenderness Neurological: nl mental status Skin: nl turgor Lymph: No enlarged Medications Medications Current Medications Fluticasone/ Vilanterol (Breo Ellipta 100-25 Mcg Inh) 1 inh DAILY INH Last administered on 10/05/18at 09:24; Admin Dose 1 INH; Start 10/02/18 at 21:00 Montelukast Sodium (Singulair) 10 mg QHS PO Last administered on 10/04/18 20:42; Admin Dose 10 MG; Start 10/02/18 at 21:00 Tamsulosin HCl (Flomax) 0.4 mg HS PO Last administered on 10/04/18 20:43; Admin Dose 0.4 MG; Start 10/02/18 at 21:00 Pantoprazole (Protonix Tab) 40 mg DAILY@06 PO Last administered on 10/05/18 05:57; Admin Dose 40 MG; Start 10/03/18 at 06:00 Azithromycin 250 mg/Sodium Chloride 250 ml @ 250 mls/hr Q24H IVPB Last administered on 10/05/18 17:22; Admin Dose 250 MLS/HR; Start 10/03/18 at 18:00 Ceftriaxone Sodium 50 ml @ 100 mls/hr Q24H IVPB Last administered on 10/05/18 16:17; Admin Dose 100 MLS/HR; Start 10/03/18 at 17:00 Enoxaparin Sodium (Lovenox) 30 mg Q24H SC Last administered on 10/04/18 20:42; Admin Dose 30 MG; Start 10/02/18 at 20:00 Acetaminophen (Tylenol Tab) 500 mg Q6H PRN PO MILD PAIN(1-3)OR ELEVATED TEMP; Start 10/02/18 at 20:00 Albuterol/ Ipratropium (Duoneb) 3 ml Q4HWA RESP THERAPY HHN Last administered on 10/05/18 16:53; Admin Dose 3 ML; Start 10/02/18 at 21:00 Guaifenesin (Mucinex) 600 mg Q6 PRN PO COUGH Last administered on 10/03/18 20:34; Admin Dose 600 MG; Start 10/03/18 at 10:00 MAYRA CID MD Oct 05, 2018 18:09
[2018-10-05 20:22] VITALS: BP 131/60; PULSE 86; RESP 18
[2018-10-05] MEDS: ENOXAPARIN 30 MG/0.3 ML SYG SC SCH (21:08)
[2018-10-05] MEDS: MONTELUKAST 10 MG TAB PO SCH (21:08)
[2018-10-05] MEDS: TAMSULOSIN (SR) 0.4 MG CAP PO SCH (21:08)
[2018-10-06 02:46] VITALS: BP 136/62; PULSE 86; RESP 18
[2018-10-06] MEDS: PANTOPRAZOLE (EC) 40 MG TAB PO SCH (05:49)
--- NOTE | 2018-10-06 07:00 | NUR ---
no acute changes patient remained afebrile with vss. denies pain when asked. stated he had a BM yesterday, denies being constipated. needs attended to and anticipated. fall precautions observed. call light within reach
[2018-10-06 08:06] VITALS: BP 166/68; PULSE 79; RESP 18
[2018-10-06] MEDS: FLUTICASONE/VILANTEROL 100-25 INH SCH (08:37)
[2018-10-06] MEDS: ALBUTEROL/IPRATROPIUM (NEB) 3 ML AMP HHN SCH ×4 (08:39→19:48)
[2018-10-06 08:47] VITALS: BP 157/71
--- NOTE | 2018-10-06 13:45 | CONS ---
Date/Time of Note Date/Time of Note DATE: 10/06/18 TIME: 13:42 Consult Date/Type/Reason Admit Date/Time Oct 02, 2018 at 17:24 Initial Consult Date 10/05/18 Type of Consultation: Urology Reason for Consultation Urinary retention Requesting Provider: BALBINA VIVAS MD Subjective Patient states that he is breathing better but still has some cough Objective Vital Signs Date Temp Pulse Resp B/P (MAP) Pulse Ox O2 O2 Flow FiO2 Time Delivery Rate 10/06/18 81 16 97 21 13:25 10/06/18 157/71 08:47 (99) 10/06/18 98.6 08:06 10/05/18 Room Air 14:09 10/02/18 2 16:20 Intake and Output 10/05/18 10/05/18 10/06/18 1515:00 23:00 07:00 IntakeIntake Total 480 ml 1200 ml OutputOutput Total 800 ml 1000 ml BalanceBalance 480 ml 400 ml -1000 ml Exam The Carlisle catheter is draining well and the urine is clear. Results/Medications Result Diagram: 10/06/18 0656 10/06/18 0656 Results 24 hrs Laboratory Tests Test 10/06/18 06:56 White Blood Count 6.1 Red Blood Count 2.84 L Hemoglobin 8.3 L Hematocrit 26.1 L Mean Corpuscular Volume 91.9 Mean Corpuscular Hemoglobin 29.2 Mean Corpuscular Hemoglobin Concent 31.8 L Red Cell Distribution Width 13.7 Platelet Count 307 Mean Platelet Volume 8.4 Immature Granulocytes % 0.500 H Neutrophils % 78.7 H Lymphocytes % 9.0 L Monocytes % 6.0 Eosinophils % 5.0 Basophils % 0.8 Nucleated Red Blood Cells % 0.0 Immature Granulocytes # 0.030 Neutrophils # 4.8 Lymphocytes # 0.6 L Monocytes # 0.4 Eosinophils # 0.3 Basophils # 0.1 Nucleated Red Blood Cells # 0.0 Sodium Level 140 Potassium Level 4.1 Chloride Level 108 Carbon Dioxide Level 23 Anion Gap 9 Blood Urea Nitrogen 21 H Creatinine 2.67 H Est Glomerular Filtrat Rate mL/min Glucose Level 106 Calcium Level 8.4 Medications Current Medications Fluticasone/ Vilanterol (Breo Ellipta 100-25 Mcg Inh) 1 inh DAILY INH Last administered on 10/06/18at 08:37; Admin Dose 1 INH; Start 10/02/18 at 21:00 Montelukast Sodium (Singulair) 10 mg QHS PO Last administered on 10/05/18 21:08; Admin Dose 10 MG; Start 10/02/18 at 21:00 Tamsulosin HCl (Flomax) 0.4 mg HS PO Last administered on 10/05/18 21:08; Admin Dose 0.4 MG; Start 10/02/18 at 21:00 Pantoprazole (Protonix Tab) 40 mg DAILY@06 PO Last administered on 10/06/18 05:49; Admin Dose 40 MG; Start 10/03/18 at 06:00 Azithromycin 250 mg/Sodium Chloride 250 ml @ 250 mls/hr Q24H IVPB Last administered on 10/05/18 17:22; Admin Dose 250 MLS/HR; Start 10/03/18 at 18:00 Ceftriaxone Sodium 50 ml @ 100 mls/hr Q24H IVPB Last administered on 10/05/18 16:17; Admin Dose 100 MLS/HR; Start 10/03/18 at 17:00 Enoxaparin Sodium (Lovenox) 30 mg Q24H SC Last administered on 10/05/18 21:08; Admin Dose 30 MG; Start 10/02/18 at 20:00 Acetaminophen (Tylenol Tab) 500 mg Q6H PRN PO MILD PAIN(1-3)OR ELEVATED TEMP; Start 10/02/18 at 20:00 Albuterol/ Ipratropium (Duoneb) 3 ml Q4HWA RESP THERAPY HHN Last administered on 10/06/18 13:25; Admin Dose 3 ML; Start 10/02/18 at 21:00 Guaifenesin (Mucinex) 600 mg Q6 PRN PO COUGH Last administered on 10/03/18 20:34; Admin Dose 600 MG; Start 10/03/18 at 10:00 Assessment/Plan Chief Complaint/Hosp Course 83-year-old male who is known to me from before presented to the hospital with difficulty breathing because of pneumonia. He is known to have a COPD and it appears every time his COPD gets worse and he takes more medications for it he develops urinary retention even though he is on tamsulosin. He was voiding well prior to the admission and for 2 days after his admission he was still urinating okay however on October 04, 2018 he started having difficulty urinating and developed urinary retention and a Carlisle catheter was put in. Patient does have an indwelling Carlisle catheter for now. His urinary retention is most likely related to his pneumonia medications as these do have anticholinergic effect and that weakens the bladder contractions. For now we will keep the Carlisle catheter in and once he is stable he could go home with the Carlisle catheter and come to the office to have it removed for a trial of spontaneous voiding MAYRA CID MD Oct 06, 2018 13:45
[2018-10-06 15:03] VITALS: BP 156/70; PULSE 82
[2018-10-06] MEDS: CEFTRIAXONE 1 GM/50 ML (PMX) 50 ML IVPB SCH (16:30)
--- NOTE | 2018-10-06 17:41 | PN ---
Date/Time of Note Date/Time of Note DATE: 10/06/18 TIME: 17:37 Assessment/Plan VTE Prophylaxis Risk [place] [facility] risk: 3 SCD applied ([place] [facility] No SCD contraindicated: other Pharmacological prophylaxis: LMWH Lines/Catheters IV C[facility]from [facility] Saline Lock Urinary Cath still in place: Yes Reason Cath still needed: urinary retention Assessment/Plan Assessment/Plan A: bilateral pneumonia ckd anemia urinary retention copd bronchiectasis P: cont abx recheck cxr cont resp rx cont cagle Result Diagram: 10/06/18 0656 10/06/18 0656 Results 24hrs Laboratory Tests Test 10/06/18 06:56 White Blood Count 6.1 Red Blood Count 2.84 L Hemoglobin 8.3 L Hematocrit 26.1 L Mean Corpuscular Volume 91.9 Mean Corpuscular Hemoglobin 29.2 Mean Corpuscular Hemoglobin Concent 31.8 L Red Cell Distribution Width 13.7 Platelet Count 307 Mean Platelet Volume 8.4 Immature Granulocytes % 0.500 H Neutrophils % 78.7 H Lymphocytes % 9.0 L Monocytes % 6.0 Eosinophils % 5.0 Basophils % 0.8 Nucleated Red Blood Cells % 0.0 Immature Granulocytes # 0.030 Neutrophils # 4.8 Lymphocytes # 0.6 L Monocytes # 0.4 Eosinophils # 0.3 Basophils # 0.1 Nucleated Red Blood Cells # 0.0 Sodium Level 140 Potassium Level 4.1 Chloride Level 108 Carbon Dioxide Level 23 Anion Gap 9 Blood Urea Nitrogen 21 H Creatinine 2.67 H Est Glomerular Filtrat Rate mL/min Glucose Level 106 Calcium Level 8.4 Subjective 24 Hr Interval Summary Free Text/Dictation Urology and nephrology consults appreciated. Pt improving slowly. Still fits of cough, improved with nebulizer. No cp, sob. Ambulating some. Appetite improving. Exam/Review of Systems Vital Signs Vitals Vital Signs Date Temp Pulse Resp B/P (MAP) Pulse Ox O2 O2 Flow FiO2 Time Delivery Rate 10/06/18 75 16 98 17:13 10/06/18 98.3 156/70 15:03 (98) 10/06/18 21 13:25 10/05/18 Room Air 14:09 10/02/18 2 16:20 Intake and Output 10/05/18 10/05/18 10/06/18 1515:00 23:00 07:00 IntakeIntake Total 480 ml 1200 ml OutputOutput Total 800 ml 1000 ml BalanceBalance 480 ml 400 ml -1000 ml Exam gen- nad, nontoxic lungs- CTA heart- RRR abd- +BS, soft, nontender ext- no edema Medications Medications Current Medications Fluticasone/ Vilanterol (Breo Ellipta 100-25 Mcg Inh) 1 inh DAILY INH Last administered on 10/06/18 08:37; Admin Dose 1 INH; Start 10/02/18 at 21:00 Montelukast Sodium (Singulair) 10 mg QHS PO Last administered on 10/05/18 21:08; Admin Dose 10 MG; Start 10/02/18 at 21:00 Tamsulosin HCl (Flomax) 0.4 mg HS PO Last administered on 10/05/18 21:08; Admin Dose 0.4 MG; Start 10/02/18 at 21:00 Pantoprazole (Protonix Tab) 40 mg DAILY@06 PO Last administered on 10/06/18 05:49; Admin Dose 40 MG; Start 10/03/18 at 06:00 Azithromycin 250 mg/Sodium Chloride 250 ml @ 250 mls/hr Q24H IVPB Last administered on 10/05/18 17:22; Admin Dose 250 MLS/HR; Start 10/03/18 at 18:00 Ceftriaxone Sodium 50 ml @ 100 mls/hr Q24H IVPB Last administered on 10/06/18 16:30; Admin Dose 100 MLS/HR; Start 10/03/18 at 17:00 Enoxaparin Sodium (Lovenox) 30 mg Q24H SC Last administered on 10/05/18 21:08; Admin Dose 30 MG; Start 10/02/18 at 20:00 Acetaminophen (Tylenol Tab) 500 mg Q6H PRN PO MILD PAIN(1-3)OR ELEVATED TEMP; Start 10/02/18 at 20:00 Albuterol/ Ipratropium (Duoneb) 3 ml Q4HWA RESP THERAPY HHN Last administered on 10/06/18 17:12; Admin Dose 3 ML; Start 10/02/18 at 21:00 Guaifenesin (Mucinex) 600 mg Q6 PRN PO COUGH Last administered on 10/03/18 20:34; Admin Dose 600 MG; Start 10/03/18 at 10:00 BALBINA VIVAS MD Oct 06, 2018 17:41
--- NOTE | 2018-10-06 18:53 | NUR ---
RN NOTE Patient resting in bed, family at bedside. Verbalized no concerns at this time. No SOB or acute distress noted. Call light within reach. MD aware of patient status. Will continue to monitor until end of shift and endorse report, pending input/output, IV intake and pending orders to incoming RN for continuity of care.
[2018-10-06] MEDS: AZITHROMYCIN 250 MG in SOD CHLORIDE 0.9% 250 ML IVPB SCH (18:55)
[2018-10-06 20:07] VITALS: BP 148/66; PULSE 87; RESP 18
[2018-10-06] MEDS: TAMSULOSIN (SR) 0.4 MG CAP PO SCH (20:43)
[2018-10-06] MEDS: MONTELUKAST 10 MG TAB PO SCH (20:43)
[2018-10-06] MEDS: ENOXAPARIN 30 MG/0.3 ML SYG SC SCH (20:44)
[2018-10-06] MEDS ORDERED: EPOETIN 10000 UNITS/1 ML INJ (ESRD) SC ONE (22:00)
--- NOTE | 2018-10-06 22:54 | CONS ---
DATE OF ADMISSION: 10/02/2018 DATE OF CONSULTATION: TYPE OF CONSULTATION: Renal. Thank you, Dr. Vivas, for asking me to participate in medical management of this patient. REASON FOR CONSULTATION: Chronic kidney disease. HISTORY OF PRESENT ILLNESS: This 83-year-old man was admitted with increasing cough with shaking chills. The patient has a history of chronic kidney disease for which I have been following him. He was last seen by me on 08/20/2018, and at that time, his serum creatinine was 2.26 with a BUN of 25. The patient's renal function has remained in this range for some time. His estimated GFR was 28. At that time. He was admitted now because of bilateral pulmonary infiltrates. He does have a history of chronic obstructive pulmonary disease and bronchiectasis. 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 He currently has a Carlisle catheter in place because of difficulty urinating. CURRENT MEDICATIONS: Include the followin. Azithromycin. 2. Ceftriaxone. 3. Mucinex. 4. Pantoprazole 40 mg a day. 5. Singulair 10 mg a day. 6. Flomax 0.4 mg a day. 7. Lovenox 30 mg subQ daily. 8. Acetaminophen. PHYSICAL EXAMINATION: GENERAL: At this time reveals an elderly, thin man in no apparent distress. VITAL SIGNS: Temperature 98.5, pulse of 87, respirations 18, blood pressure 148/66, O2 saturation 94% on room air. HEENT: Head normocephalic. Eyes: Extraocular muscles intact. NOSE AND MOUTH: Normal. NECK: Supple. No neck vein distention. LUNGS: Clear to auscultation with diminished breath sounds bilaterally. HEART: Regular rhythm. No murmurs, gallops or rubs. ABDOMEN: Soft, nontender, no masses or megaly. EXTREMITIES: No peripheral edema. LABORATORY DATA: Today, hemoglobin 8.3, hematocrit 26.1. Chemistry: Sodium 140, potassium 4.1, chloride 108, CO2 23, BUN 21, creatinine 2.67. IMPRESSION: 1. Chronic kidney disease. He has had chronic kidney disease with isolated proteinuria. His renal ultrasound did show small kidneys that were hyperechoic , consistent with medical renal disease. He also has a history of benign monoclonal gammopathy. He has had a bone marrow aspirate and biopsy in the past which did not show multiple myeloma. His renal function at this time is slightly decreased from where he was previously. This could be related to his recent illness. He also has a Carlisle catheter in place because of some obstructive uropathy. 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 I would continue his current medication for now. 2. Anemia of chronic kidney disease. 3. Chronic obstructive pulmonary disease. 4. Bilateral pneumonia. PLAN: I would recommend we continue his current regimen. I will start him on Epogen to for the anemia. He did have iron studies done which were unremarkable. I will follow the patient along with you. Dictated By: LEONOR CANSECO MD ND/NTS Conf#: [id number] DID#: [id number] CC: BALBINA VIVAS MD;*EndCC* MTDD
[2018-10-07 02:00] VITALS: BP 146/65; PULSE 82; RESP 18
--- NOTE | 2018-10-07 05:57 | NUR ---
Pt is alert and oriented x4. Vital signs stable, no acute events overnight. No SOB or acute distress noted. Call light within reach. Will continue to monitor until end of shift and endorse report.
[2018-10-07] MEDS: PANTOPRAZOLE (EC) 40 MG TAB PO SCH (06:51)
[2018-10-07 08:31] VITALS: BP 164/71; PULSE 89; RESP 18
[2018-10-07] MEDS: FLUTICASONE/VILANTEROL 100-25 INH SCH (08:45)
[2018-10-07] MEDS: ALBUTEROL/IPRATROPIUM (NEB) 3 ML AMP HHN SCH ×4 (10:46→21:12)
--- NOTE | 2018-10-07 13:36 | PN ---
Date/Time of Note Date/Time of Note DATE: 10/07/18 TIME: 13:30 Assessment/Plan VTE Prophylaxis Risk score (from [facility] [place] risk: 4 SCD applied (from [facility] [place] No SCD contraindicated: other Pharmacological prophylaxis: LMWH Lines/Catheters IV C[facility]ter Type [facility]from [facility] Saline Lock Urinary Cath still in place: Yes Reason Cath still needed: urinary retention Assessment/Plan Assessment/Plan A: bilateral pneumonia with persistent infiltrates ckd anemia urinary retention copd bronchiectasis P: CT chest cont abx, resp rx cont cagle pulm eval Result Diagram: 10/07/1852010/07/18520 Results 24hrs Laboratory Tests Test 10/07/18 05:21 White Blood Count 5.5 Red Blood Count 2.75 L Hemoglobin 8.1 L Hematocrit 25.4 L Mean Corpuscular Volume 92.4 Mean Corpuscular Hemoglobin 29.5 Mean Corpuscular Hemoglobin Concent 31.9 L Red Cell Distribution Width 13.6 Platelet Count 317 Mean Platelet Volume 8.3 Immature Granulocytes % 0.400 Neutrophils % 74.3 Lymphocytes % 13.1 L Monocytes % 6.4 Eosinophils % 4.7 Basophils % 1.1 Nucleated Red Blood Cells % 0.0 Immature Granulocytes # 0.020 Neutrophils # 4.1 Lymphocytes # 0.7 L Monocytes # 0.4 Eosinophils # 0.3 Basophils # 0.1 Nucleated Red Blood Cells # 0.0 Sodium Level 142 Potassium Level 4.0 Chloride Level 108 Carbon Dioxide Level 24 Anion Gap 10 Blood Urea Nitrogen 20 Creatinine 2.79 H Est Glomerular Filtrat Rate mL/min Glucose Level 100 Calcium Level 8.3 L Subjective 24 Hr Interval Summary Free Text/Dictation Pt doing better. Ambulating some. Still some cough, no cp, sob, dizziness. Exam/Review of Systems Vital Signs Vitals Vital Signs Date Temp Pulse Resp B/P (MAP) Pulse Ox O2 O2 Flow FiO2 Time Delivery Rate 10/07/18 82 20 97 21 10:47 10/07/18 98.1 164/71 08:31 (102) 10/05/18 Room Air 14:09 Intake and Output 10/06/18 10/06/18 10/07/18 1515:00 23:00 07:00 IntakeIntake Total 300 ml 480 ml OutputOutput Total 800 ml 1100 ml BalanceBalance -500 ml -620 ml Exam gen- nad, nontoxic lungs- CTA heart- RRR abd- +BS, soft, nontender ext- no edema Medications Medications Current Medications Fluticasone/ Vilanterol (Breo Ellipta 100-25 Mcg Inh) 1 inh DAILY INH Last ad ministered on 10/07/18 08:45; Admin Dose 1 INH; Start 10/02/18 at 21:00 Montelukast Sodium (Singulair) 10 mg QHS PO Last administered on 10/06/18 20:43; Admin Dose 10 MG; Start 10/02/18 at 21:00 Tamsulosin HCl (Flomax) 0.4 mg HS PO Last administered on 10/06/18 20:43; Admin Dose 0.4 MG; Start 10/02/18 at 21:00 Pantoprazole (Protonix Tab) 40 mg DAILY@06 PO Last administered on 10/07/18 06:51; Admin Dose 40 MG; Start 10/03/18 at 06:00 Azithromycin 250 mg/Sodium Chloride 250 ml @ 250 mls/hr Q24H IVPB Last administered on 10/06/18 18:55; Admin Dose 250 MLS/HR; Start 10/03/18 at 18:00 Ceftriaxone Sodium 50 ml @ 100 mls/hr Q24H IVPB Last administered on 10/06/18 16:30; Admin Dose 100 MLS/HR; Start 10/03/18 at 17:00 Enoxaparin Sodium (Lovenox) 30 mg Q24H SC Last administered on 10/06/18 20:44; Admin Dose 30 MG; Start 10/02/18 at 20:00 Acetaminophen (Tylenol Tab) 500 mg Q6H PRN PO MILD PAIN(1-3)OR ELEVATED TEMP; Start 10/02/18 at 20:00 Albuterol/ Ipratropium (Duoneb) 3 ml Q4HWA RESP THERAPY HHN Last administered on 10/07/18 10:46; Admin Dose 3 ML; Start 10/02/18 at 21:00 Guaifenesin (Mucinex) 600 mg Q6 PRN PO COUGH Last administered on 10/03/18 20:34; Admin Dose 600 MG; Start 10/03/18 at 10:00 BALBINA VIVAS MD Oct 07, 2018 13:36
--- NOTE | 2018-10-07 13:52 | CONS ---
Assessment/Plan Assessment/Plan Hospital Course 1. 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 His renal function is about the same. I would continue current management. 2. Anemia of chronic kidney disease. I have started the patient on Epogen. 3. Chronic obstructive pulmonary disease with bilateral infiltrates on chest x-ray. He is going to have a CAT scan of the chest and possible further pulmonary workup. 4. Monoclonal gammopathy of unknown significance. Result Diagram: 10/07/18 0521 10/07/18 0521 Results 24hrs Laboratory Tests Test 10/07/18 05:21 White Blood Count 5.5 Red Blood Count 2.75 L Hemoglobin 8.1 L Hematocrit 25.4 L Mean Corpuscular Volume 92.4 Mean Corpuscular Hemoglobin 29.5 Mean Corpuscular Hemoglobin Concent 31.9 L Red Cell Distribution Width 13.6 Platelet Count 317 Mean Platelet Volume 8.3 Immature Granulocytes % 0.400 Neutrophils % 74.3 Lymphocytes % 13.1 L Monocytes % 6.4 Eosinophils % 4.7 Basophils % 1.1 Nucleated Red Blood Cells % 0.0 Immature Granulocytes # 0.020 Neutrophils # 4.1 Lymphocytes # 0.7 L Monocytes # 0.4 Eosinophils # 0.3 Basophils # 0.1 Nucleated Red Blood Cells # 0.0 Sodium Level 142 Potassium Level 4.0 Chloride Level 108 Carbon Dioxide Level 24 Anion Gap 10 Blood Urea Nitrogen 20 Creatinine 2.79 H Est Glomerular Filtrat Rate mL/min Glucose Level 100 Calcium Level 8.3 L Consultation Date/Type/Reason Admit Date/Time Oct 02, 2018 at 17:24 Initial Consult Date 10/05/18 Requesting Provider: BALBINA VIVAS MD 24 HR Interval Summary Free Text/Dictation Efren is being seen in nephrologic follow-up. He is awake and alert. He is feeling better but still has some cough and changes on his chest x-ray done today. Constitutional: no complaints, improved Exam/Review of Systems Vital Signs Vitals Vital Signs Date Temp Pulse Resp B/P (MAP) Pulse Ox O2 O2 Flow FiO2 Time Delivery Rate 10/07/18 82 20 97 21 10:47 10/07/18 98.1 164/71 08:31 (102) 10/05/18 Room Air 14:09 Intake and Output 10/06/18 10/06/18 10/07/18 1515:00 23:00 07:00 IntakeIntake Total 300 ml 480 ml OutputOutput Total 800 ml 1100 ml BalanceBalance -500 ml -620 ml Exam Constitutional: alert, oriented, frail Respiratory: normal air movement, diminished breath sounds Cardiovascular: regular rate and rhythm Gastrointestinal: soft, non-tender Musculoskeletal: nl extremities to inspection Medications Medications Current Medications Fluticasone/ Vilanterol (Breo Ellipta 100-25 Mcg Inh) 1 inh DAILY INH Last administered on 10/07/18 08:45; Admin Dose 1 INH; Start 10/02/18 at 21:00 Montelukast Sodium (Singulair) 10 mg QHS PO Last administered on 10/06/18 20:43; Admin Dose 10 MG; Start 10/02/18 at 21:00 Tamsulosin HCl (Flomax) 0.4 mg HS PO Last administered on 10/06/18 20:43; Admin Dose 0.4 MG; Start 10/02/18 at 21:00 Pantoprazole (Protonix Tab) 40 mg DAILY@06 PO Last administered on 10/07/18 06:51; Admin Dose 40 MG; Start 10/03/18 at 06:00 Azithromycin 250 mg/Sodium Chloride 250 ml @ 250 mls/hr Q24H IVPB Last administered on 10/06/18 18:55; Admin Dose 250 MLS/HR; Start 10/03/18 at 18:00 Ceftriaxone Sodium 50 ml @ 100 mls/hr Q24H IVPB Last administered on 10/06/18 16:30; Admin Dose 100 MLS/HR; Start 10/03/18 at 17:00 Enoxaparin Sodium (Lovenox) 30 mg Q24H SC Last administered on 10/06/18 20:44; Admin Dose 30 MG; Start 10/02/18 at 20:00 Acetaminophen (Tylenol Tab) 500 mg Q6H PRN PO MILD PAIN(1-3)OR ELEVATED TEMP; Start 10/02/18 at 20:00 Albuterol/ Ipratropium (Duoneb) 3 ml Q4HWA RESP THERAPY HHN Last administered on 10/07/18 10:46; Admin Dose 3 ML; Start 10/02/18 at 21:00 Guaifenesin (Mucinex) 600 mg Q6 PRN PO COUGH Last administered on 1/19/19at 20:34; Admin Dose 600 MG; Start 10/03/18 at 10:00 Date/Time of Note Date/Time of Note DATE: 10/07/18 TIME: 13:47 LEONOR CANSECO MD Oct 07, 2018 13:52
--- NOTE | 2018-10-07 15:31 | CONS ---
DATE OF ADMISSION: 10/02/2018 DATE OF CONSULTATION: TYPE OF CONSULTATION: Pulmonary. REASON FOR CONSULTATION: Shortness of breath. Thank you, Dr. Vivas, for this consultation. HISTORY OF PRESENT ILLNESS: This is a pleasant 83-year-old gentleman with multiple medical problems including COPD, bronchiectasis, hypertension, hyperlipidemia, presented with productive cough of 1 we ek duration productive mucus. No fever, subjective chills, no chest pain or palpitations. No hemopt ysis, hematemesis. The patient had a significant tobacco history, but quit smoking in 2002. 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 PAST MEDICAL HISTORY: As above. MEDICATIONS: Per chart. ALLERGIES: NO KNOWN. SOCIAL HISTORY: Ex-smoker, no alcohol, no history of drug use. FAMILY HISTORY: Noncontributory. REVIEW OF SYSTEMS: A 12-point review of systems was negative other than mentioned above. PHYSICAL EXAMINATION: GENERAL: Thin, elderly gentleman with recent 5-pound weight loss, comfortable at rest, in no acute d istress. VITAL SIGNS: Currently afebrile, pulse is 80, blood pressure 160/71, O2 saturation 96% on room air. NECK: Supple. No JVD or lymphadenopathy. CARDIAC: S1, S2. No added sounds or murmurs. ABDOMEN: Soft, nontender. No guarding or rebound. EXTREMITIES: No cyanosis, clubbing, edema. NEUROLOGIC: Grossly intact. No focal deficits. LABORATORY DATA: White count 5.6, hemoglobin 8.1, platelets of 317. BUN 20, creatinine 2.79. DIAGNOSTIC DATA: Chest x-ray demonstrating mild hyperinflation, possible small effusion. IMPRESSION AND PLAN: 1. Likely chronic obstructive pulmonary disease exacerbation. 2. Possible viral tracheobronchitis. 3. Questionable underlying history of bronchiectasis. 4. Extensive tobacco history. 5. Urinary retention requiring Carlisle catheter. The patient will require: 1. Continued antibiotics for community-acquired pneumonia. 2. Inhaler therapy. 3. CT chest, noncontrast to evaluate lung parenchyma. 4. May benefit from percussion vest if evidence of significant bronchiectasis. 5. Sputum Gram stain and culture if available. Dictated By: DIAMOND PEREZ/ALLYSSA Conf#: [id number] DID#: [id number] CC: BALBINA VIVAS MD;*[facility]*
[2018-10-07 15:33] VITALS: BP 154/70; PULSE 91; RESP 18
[2018-10-07] MEDS ORDERED: EPOETIN 10000 UNITS/1 ML INJ (ESRD) SC SCH (17:00)
[2018-10-07] MEDS: AZITHROMYCIN 250 MG in SOD CHLORIDE 0.9% 250 ML IVPB SCH (17:47)
[2018-10-07] MEDS: CEFTRIAXONE 1 GM/50 ML (PMX) 50 ML IVPB SCH (17:47)
--- NOTE | 2018-10-07 19:16 | CONS ---
Date/Time of Note Date/Time of Note DATE: 10/07/18 TIME: 19:14 Consult Date/Type/Reason Admit Date/Time Oct 02, 2018 at 17:24 Initial Consult Date 10/05/18 Type of Consultation: Urology Reason for Consultation Urinary retention Requesting Provider: BALBINA VIVAS MD Subjective The patient is comfortable he still have mild cough. He denies having any pain. Objective Vital Signs Date Temp Pulse Resp B/P (MAP) Pulse Ox O2 O2 Flow FiO2 Time Delivery Rate 10/07/18 73 20 96 21 16:42 10/07/18 97.6 154/70 15:33 (98) 10/05/18 Room Air 14:09 Intake and Output 10/06/18 10/06/18 10/07/18 1515:00 23:00 07:00 IntakeIntake Total 300 ml 480 ml OutputOutput Total 800 ml 1100 ml BalanceBalance -500 ml -620 ml Exam The Carlisle catheter is draining clear urine and the urine culture showed no growth after 48 hours. Results/Medications Result Diagram: 10/07/18 0510/07/18 0521 Results 24 hrs Laboratory Tests Test 10/07/18 05:21 White Blood Count 5.5 Red Blood Count 2.75 L Hemoglobin 8.1 L Hematocrit 25.4 L Mean Corpuscular Volume 92.4 Mean Corpuscular Hemoglobin 29.5 Mean Corpuscular Hemoglobin Concent 31.9 L Red Cell Distribution Width 13.6 Platelet Count 317 Mean Platelet Volume 8.3 Immature Granulocytes % 0.400 Neutrophils % 74.3 Lymphocytes % 13.1 L Monocytes % 6.4 Eosinophils % 4.7 Basophils % 1.1 Nucleated Red Blood Cells % 0.0 Immature Granulocytes # 0.020 Neutrophils # 4.1 Lymphocytes # 0.7 L Monocytes # 0.4 Eosinophils # 0.3 Basophils # 0.1 Nucleated Red Blood Cells # 0.0 Sodium Level 142 Potassium Level 4.0 Chloride Level 108 Carbon Dioxide Level 24 Anion Gap 10 Blood Urea Nitrogen 20 Creatinine 2.79 H Est Glomerular Filtrat Rate mL/min Glucose Level 100 Calcium Level 8.3 L Medications Current Medications Fluticasone/ Vilanterol (Breo Ellipta 100-25 Mcg Inh) 1 inh DAILY INH Last administered on 10/07/18at 08:45; Admin Dose 1 INH; Start 10/02/18 at 21:00 Montelukast Sodium (Singulair) 10 mg QHS PO Last administered on 10/06/18 20:43; Admin Dose 10 MG; Start 10/02/18 at 21:00 Tamsulosin HCl (Flomax) 0.4 mg HS PO Last administered on 10/06/18 20:43; Admin Dose 0.4 MG; Start 10/02/18 at 21:00 Pantoprazole (Protonix Tab) 40 mg DAILY@06 PO Last administered on 10/07/18 06:51; Admin Dose 40 MG; Start 10/03/18 at 06:00 Azithromycin 250 mg/Sodium Chloride 250 ml @ 250 mls/hr Q24H IVPB Last administered on 10/07/18 17:47; Admin Dose 250 MLS/HR; Start 10/03/18 at 18:00 Ceftriaxone Sodium 50 ml @ 100 mls/hr Q24H IVPB Last administered on 10/07/18 17:47; Admin Dose 100 MLS/HR; Start 10/03/18 at 17:00 Enoxaparin Sodium (Lovenox) 30 mg Q24H SC Last administered on 10/06/18 20:44; Admin Dose 30 MG; Start 10/02/18 at 20:00 Acetaminophen (Tylenol Tab) 500 mg Q6H PRN PO MILD PAIN(1-3)OR ELEVATED TEMP; Start 10/02/18 at 20:00 Albuterol/ Ipratropium (Duoneb) 3 ml Q4HWA RESP THERAPY HHN Last administered on 10/07/18 16:41; Admin Dose 3 ML; Start 10/02/18 at 21:00 Guaifenesin (Mucinex) 600 mg Q6 PRN PO COUGH Last administered on 10/03/18 20:34; Admin Dose 600 MG; Start 10/03/18 at 10:00 Epoetin Chase (Epogen (Esrd)) 10,000 units MoWeFr@17 SC Last administered on 10/07/18 17:48; Admin Dose 10,000 UNITS; Start 10/07/18 at 17:00 Assessment/Plan Chief Complaint/Hosp Course 83-year-old male who is known to me from before presented to the hospital with difficulty breathing because of pneumonia. He is known to have a COPD and it appears every time his COPD gets worse and he takes more medications for it he develops urinary retention even though he is on tamsulosin. He was voiding well prior to the admission and for 2 days after his admission he was still urinating okay however on October 04, 2018 he started having difficulty urinating and developed urinary retention and a Carlisle catheter was put in. Patient does have an indwelling Carlisle catheter for now. His urinary retention is most likely related to his pneumonia medications as these do have anticholinergic effect and that weakens the bladder contractions. For now we will keep the Carlisle catheter in and once he is stable he could go home with the Carlisle catheter and come back to the office to have it removed for a trial of spontaneous voiding MAYRA CID MD Oct 07, 2018 19:16
[2018-10-07 20:00] VITALS: BP 137/63; PULSE 89; RESP 18
[2018-10-07] MEDS: TAMSULOSIN (SR) 0.4 MG CAP PO SCH (20:39)
[2018-10-07] MEDS: ENOXAPARIN 30 MG/0.3 ML SYG SC SCH (20:39)
[2018-10-07] MEDS: MONTELUKAST 10 MG TAB PO SCH (20:39)
[2018-10-08 02:00] VITALS: BP 140/74; PULSE 73; RESP 18
[2018-10-08] MEDS: PANTOPRAZOLE (EC) 40 MG TAB PO SCH (05:27)
--- NOTE | 2018-10-08 06:55 | NUR ---
pt alert,oriented x4, no sob , denies pain. breathing treatment as ordered,tolerated well able to sleep during the night
[2018-10-08 08:00] VITALS: BP 161/73; PULSE 77; RESP 18
[2018-10-08] MEDS: ALBUTEROL/IPRATROPIUM (NEB) 3 ML AMP HHN SCH ×4 (08:14→21:16)
[2018-10-08] MEDS: FLUTICASONE/VILANTEROL 100-25 INH SCH (09:25)
--- NOTE | 2018-10-08 10:44 | CONS ---
Assessment/Plan Assessment/Plan Assessment/Plan Assessment and recommendations; 1. Patient admitted for COPD exacerbation and bronchitis with significant interval improvement. 2. History of BPH. 3. Chronic renal insufficiency. Continue current supportive care. Result Diagram: 10/07/1852010/07/18520 Consultation Date/Type/Reason Admit Date/Time Oct 02, 2018 at 17:24 Initial Consult Date 10/05/18 Type of Consult Pulmonary Reason for Consultation Patient condition has significantly improved. Denies any further shortness of breath, wheezing, cough or any sputum production. General exam; elderly male, awake alert, currently no distress. H EENT exam; supple neck, no JVD. No lymphadenopathy. Midline trachea. No thyromegaly. Pharynx is clear. Patient is edentulous and wears dentures. Chest exam; diminished but clear breath sounds. S1-S2 audible, no murmurs. Regular rhythm. Abdomen exam; soft, no organomegaly. Nontender. Bowel sounds audible. Extremity exam; no peripheral edema clubbing. 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 Requesting Provider: BALBINA VIVAS MD Exam/Review of Systems Vital Signs Vitals Vital Signs Date Temp Pulse Resp B/P (MAP) Pulse Ox O2 O2 Flow FiO2 Time Delivery Rate 10/08/18 73 21 98 21 08:17 10/08/18 97.8 161/73 Room Air 08:00 (102) Intake and Output 10/07/18 10/07/18 10/08/18 1515:00 23:00 07:00 IntakeIntake Total 720 ml 540 ml 300 ml OutputOutput Total 1200 ml 400 ml 900 ml BalanceBalance -480 ml 140 ml -600 ml Medications Medications Current Medications Fluticasone/ Vilanterol (Breo Ellipta 100-25 Mcg Inh) 1 inh DAILY INH Last administered on 10/08/18at 09:25; Admin Dose 1 INH; Start 10/02/18 at 21:00 Montelukast Sodium (Singulair) 10 mg QHS PO Last administered on 10/07/18at 20:39; Admin Dose 10 MG; Start 10/02/18 at 21:00 Tamsulosin HCl (Flomax) 0.4 mg HS PO Last administered on 10/07/18at 20:39; Admin Dose 0.4 MG; Start 10/02/18 at 21:00 Pantoprazole (Protonix Tab) 40 mg DAILY@06 PO Last administered on 10/08/18 05:27; Admin Dose 40 MG; Start 10/03/18 at 06:00 Azithromycin 250 mg/Sodium Chloride 250 ml @ 250 mls/hr Q24H IVPB Last administered on 10/07/18 17:47; Admin Dose 250 MLS/HR; Start 10/03/18 at 18:00 Ceftriaxone Sodium 50 ml @ 100 mls/hr Q24H IVPB Last administered on 10/07/18 17:47; Admin Dose 100 MLS/HR; Start 10/03/18 at 17:00 Enoxaparin Sodium (Lovenox) 30 mg Q24H SC Last administered on 10/07/18 20:39; Admin Dose 30 MG; Start 10/02/18 at 20:00 Acetaminophen (Tylenol Tab) 500 mg Q6H PRN PO MILD PAIN(1-3)OR ELEVATED TEMP; Start 10/02/18 at 20:00 Albuterol/ Ipratropium (Duoneb) 3 ml Q4HWA RESP THERAPY HHN Last administered on 10/08/18 08:14; Admin Dose 3 ML; Start 10/02/18 at 21:00 Guaifenesin (Mucinex) 600 mg Q6 PRN PO COUGH Last administered on 10/03/18 20:34; Admin Dose 600 MG; Start 10/03/18 at 10:00 Epoetin Chase (Epogen (Esrd)) 10,000 units MoWeFr@17 SC Last administered on 10/07/18 17:48; Admin Dose 10,000 UNITS; Start 10/07/18 at 17:00 Date/Time of Note Date/Time of Note DATE: 10/08/18 TIME: 10:40 NICK CUMMINGS Oct 08, 2018 10:44
[2018-10-08 14:04] VITALS: BP 161/70; PULSE 82; RESP 18
[2018-10-08] MEDS: AZITHROMYCIN 250 MG in SOD CHLORIDE 0.9% 250 ML IVPB SCH (16:58)
[2018-10-08] MEDS: CEFTRIAXONE 1 GM/50 ML (PMX) 50 ML IVPB SCH (17:02)
--- NOTE | 2018-10-08 18:27 | PN ---
Date/Time of Note Date/Time of Note DATE: 10/08/18 TIME: 18:24 Assessment/Plan VTE Prophylaxis Risk score (from Ns)>0 risk: 5 SCD applied (from Ns): No SCD contraindicated: low risk/ambulating Pharmacological prophylaxis: LMWH Lines/Catheters IV [facility]athe[facility] Type (from [facility] Saline Lock Urinary Cath still in place: Yes Reason Cath still needed: urinary retention Assessment/Plan Assessment/Plan A: bilateral pneumonia HTN urinary retention ckd copd bronchiectasis P: start norvasc 5mg cont current rx Result Diagram: 10/07/1852010/07/18520 Subjective 24 Hr Interval Summary Free Text/Dictation Pulmonary consult appreciated. Pt feeling better, less cough, ambulating better. No cp, sob, dizziness. Exam/Review of Systems Exam Vitals Vital Signs Date Temp Pulse Resp B/P (MAP) Pulse Ox O2 O2 Flow FiO2 Time Delivery Rate 10/08/18 79 20 94 21 17:56 10/08/18 97.9 161/70 Room Air 14:04 (100) Intake and Output 10/07/18 10/07/18 10/08/18 1515:00 23:00 07:00 IntakeIntake Total 720 ml 540 ml 300 ml OutputOutput Total 1200 ml 400 ml 900 ml BalanceBalance -480 ml 140 ml -600 ml Additional Comments gen- nad, nontoxic lungs- few scattered basilar crackles heart- RRR abd- +BS, soft, nontender ext- no cce. BALBINA VIVAS MD Oct 08, 2018 18:27
[2018-10-08] MEDS: AMLODIPINE 5 MG TAB PO SCH (18:44)
[2018-10-08 20:00] VITALS: BP 147/64; PULSE 84; RESP 18
[2018-10-08] MEDS: MONTELUKAST 10 MG TAB PO SCH (21:34)
[2018-10-08] MEDS: TAMSULOSIN (SR) 0.4 MG CAP PO SCH (21:34)
[2018-10-08] MEDS: ENOXAPARIN 30 MG/0.3 ML SYG SC SCH (21:36)
--- NOTE | 2018-10-08 22:13 | CONS ---
Assessment/Plan Assessment/Plan Hospital Course (Demo Recall) 1. 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 His renal function is about the same. He will have labs done tomorrow to reassess his renal function . 2. Anemia of chronic kidney disease. I have started the patient on Epogen. 3. Chronic obstructive pulmonary disease with bilateral infiltrates on chest x- ray. He is going to have a CAT scan of the chest and possible further pulmonary workup. 4. Monoclonal gammopathy of unknown significance. Consultation Date/Type/Reason Admit Date/Time Oct 02, 2018 at 17:24 Initial Consult Date 10/05/18 Type of Consult nephrology Requesting Provider: BALBINA VIVAS MD Date/Time of Note DATE: 10/08/18 TIME: 22:05 24 HR Interval Summary Free Text/Dictation He is being seen in nephrologic follow up . He is awake and conversant . He has been less SOB with less cough . Constitutional: no complaints, improved Exam/Review of Systems Exam Vitals Vital Signs Date Temp Pulse Resp B/P (MAP) Pulse Ox O2 O2 Flow FiO2 Time Delivery Rate 10/08/18 76 18 95 21 21:16 10/08/18 97.9 161/70 Room Air 14:04 (100) Intake and Output 10/07/18 10/07/18 10/08/18 1515:00 23:00 07:00 IntakeIntake Total 720 ml 540 ml 300 ml OutputOutput Total 1200 ml 400 ml 900 ml BalanceBalance -480 ml 140 ml -600 ml Constitutional: alert, oriented, frail Respiratory: crackles/rales, diminished breath sounds Cardiovascular: regular rate and rhythm Gastrointestinal: soft, non-tender Musculoskeletal: nl extremities to inspection Results Result Diagram: 10/07/18 0521 10/07/18 0521 LEONOR CANSECO MD Oct 08, 2018 22:13
[2018-10-09 02:00] VITALS: BP 131/60; PULSE 84; RESP 18
[2018-10-09] MEDS: PANTOPRAZOLE (EC) 40 MG TAB PO SCH (05:32)
--- NOTE | 2018-10-09 07:19 | NUR ---
Patient in room asleep with no signs of distress. Vital signs stable. Patient denied pain this shift. Carlisle catheter patent and draining clear, yellow urine. No other changes noted from previous. All needs met and medications administered per MD order. Patient turned every 2 hours and heels elevated. Safety precautions and hourly rounding currently in place until change of shift.
[2018-10-09 08:00] VITALS: BP 155/67; PULSE 88; RESP 17
[2018-10-09] MEDS: ALBUTEROL/IPRATROPIUM (NEB) 3 ML AMP HHN SCH ×2 (08:50→13:00)
[2018-10-09] MEDS: AMLODIPINE 5 MG TAB PO SCH (08:53)
[2018-10-09] MEDS: FLUTICASONE/VILANTEROL 100-25 INH SCH (08:53)
--- NOTE | 2018-10-09 13:17 | PN ---
Date/Time of Note Date/Time of Note DATE: 10/09/18 TIME: 13:13 Assessment/Plan VTE Prophylaxis Risk score (from Ns)>0 risk: 4 SCD applied (from Ns): No SCD contraindicated: low risk/ambulating Pharmacological prophylaxis: LMWH Lines/Catheters IV Catheter Type (from Nrs): Saline Lock Urinary Cath still in place: Yes Reason Cath still needed: urinary retention Assessment/Plan Assessment/Plan A: bilateral pneumonia HTN urinary retention ckd anemia copd bronchiectasis P: discussed with byron Rodriguez to d/c home with abx and close f/u levaquin q48h f/u with Dr. Monroy 1-2 weeks f/u with me next week f/u with Dr. Arias in 2wks home with cagle and leg bag Result Diagram: 10/09/184 10/09/184 Results 24hrs Laboratory Tests Test 10/09/18 04:24 White Blood Count 5.2 Red Blood Count 2.79 L Hemoglobin 8.2 L Hematocrit 25.9 L Mean Corpuscular Volume 92.8 Mean Corpuscular Hemoglobin 29.4 Mean Corpuscular Hemoglobin Concent 31.7 L Red Cell Distribution Width 13.8 Platelet Count 311 Mean Platelet Volume 8.5 Immature Granulocytes % 1.100 H Neutrophils % 70.5 Lymphocytes % 16.1 Monocytes % 7.5 Eosinophils % 3.3 Basophils % 1.5 Nucleated Red Blood Cells % 0.0 Immature Granulocytes # 0.060 H Neutrophils # 3.7 Lymphocytes # 0.8 Monocytes # 0.4 Eosinophils # 0.2 Basophils # 0.1 Nucleated Red Blood Cells # 0.0 Sodium Level 144 Potassium Level 4.2 Chloride Level 104 Carbon Dioxide Level 27 Anion Gap 13 Blood Urea Nitrogen 22 H Creatinine 2.65 H Est Glomerular Filtrat Rate mL/min Glucose Level 105 Calcium Level 8.3 L Subjective 24 Hr Interval Summary Free Text/Dictation Pt feeling better anxious to go home. Cough much less, no cp, sob. Ambulating without probs. Exam/Review of Systems Exam Vitals Vital Signs Date Temp Pulse Resp B/P (MAP) Pulse Ox O2 O2 Flow FiO2 Time Delivery Rate 10/09/18 84 20 21 08:55 10/09/18 98.3 155/67 100 Room Air 08:00 (96) Intake and Output 10/08/18 10/08/18 10/09/18 1515:00 23:00 07:00 IntakeIntake Total 900 ml 200 ml OutputOutput Total 1100 ml 2450 ml BalanceBalance -200 ml -2250 ml Additional Comments gen- nad, nontoxic lungs- CTA heart- RRR abd- +BS, soft, nontender ext- no edema. Results Results 24hrs Laboratory Tests Test 10/09/18 04:24 White Blood Count 5.2 Red Blood Count 2.79 L Hemoglobin 8.2 L Hematocrit 25.9 L Mean Corpuscular Volume 92.8 Mean Corpuscular Hemoglobin 29.4 Mean Corpuscular Hemoglobin Concent 31.7 L Red Cell Distribution Width 13.8 Platelet Count 311 Mean Platelet Volume 8.5 Immature Granulocytes % 1.100 H Neutrophils % 70.5 Lymphocytes % 16.1 Monocytes % 7.5 Eosinophils % 3.3 Basophils % 1.5 Nucleated Red Blood Cells % 0.0 Immature Granulocytes # 0.060 H Neutrophils # 3.7 Lymphocytes # 0.8 Monocytes # 0.4 Eosinophils # 0.2 Basophils # 0.1 Nucleated Red Blood Cells # 0.0 Sodium Level 144 Potassium Level 4.2 Chloride Level 104 Carbon Dioxide Level 27 Anion Gap 13 Blood Urea Nitrogen 22 H Creatinine 2.65 H Est Glomerular Filtrat Rate mL/min Glucose Level 105 Calcium Level 8.3 L BALBINA VIVAS MD Oct 09, 2018 13:17
--- NOTE | 2018-10-09 13:19 | PDOCDIS ---
Discharge Instructions CONDITION [id number] Patient Condition: [id number] Fair FOLLOW UP/APPOINTMENTS Follow-up Plan with Dr. Vivas next week with Dr. Monroy in 1-[address] Arias in 2 weeks BALBINA VIVAS MD Oct 09, 2018 13:19
[2018-10-09] MEDS ORDERED: LEVO500T48 PO (13:23)
[2018-10-09] MEDS ORDERED: AMLO-145 PO (13:23)
--- NOTE | 2018-10-09 13:31 | CONS ---
Consult Date/Type/Reason Admit Date/Time Oct 02, 2018 at 17:24 Initial Consult Date 10/05/18 Type of Consult Pulmonary Requesting Provider: BALBINA VIVAS MD Date/Time of Note DATE: 10/09/18 TIME: 13:30 Subjective Patient stable no new events Objective Vital Signs Date Temp Pulse Resp B/P (MAP) Pulse Ox O2 O2 Flow FiO2 Time Delivery Rate 10/09/18 84 20 21 08:55 10/09/18 98.3 155/67 100 Room Air 08:00 (96) Intake and Output 10/08/18 10/08/18 10/09/18 1515:00 23:00 07:00 IntakeIntake Total 900 ml 200 ml OutputOutput Total 1100 ml 2450 ml BalanceBalance -200 ml -2250 ml Exam GENERAL: Thin gentleman comfortable at rest no acute distress VITAL SIGNS: per chart NECK: Supple. No JVD or lymphadenopathy. CARDIAC EXAM: S1, S2. No added sounds or murmurs. CHEST: Diminished air entry bilaterally ABDOMEN: Soft, nontender. No guarding or rebound. EXTREMITIES: No cyanosis, clubbing or edema. NEUROLOGIC: Generalized weakness. No focal deficits. Vent Setting Fraction of Inspired Oxygen pe: 21 Results/Medications Result Diagram: 10/09/18 0424 10/09/18 0424 Results 24 hrs Laboratory Tests Test 10/09/18 04:24 White Blood Count 5.2 Red Blood Count 2.79 L Hemoglobin 8.2 L Hematocrit 25.9 L Mean Corpuscular Volume 92.8 Mean Corpuscular Hemoglobin 29.4 Mean Corpuscular Hemoglobin Concent 31.7 L Red Cell Distribution Width 13.8 Platelet Count 311 Mean Platelet Volume 8.5 Immature Granulocytes % 1.100 H Neutrophils % 70.5 Lymphocytes % 16.1 Monocytes % 7.5 Eosinophils % 3.3 Basophils % 1.5 Nucleated Red Blood Cells % 0.0 Immature Granulocytes # 0.060 H Neutrophils # 3.7 Lymphocytes # 0.8 Monocytes # 0.4 Eosinophils # 0.2 Basophils # 0.1 Nucleated Red Blood Cells # 0.0 Sodium Level 144 Potassium Level 4.2 Chloride Level 104 Carbon Dioxide Level 27 Anion Gap 13 Blood Urea Nitrogen 22 H Creatinine 2.65 H Est Glomerular Filtrat Rate mL/min Glucose Level 105 Calcium Level 8.3 L Medications Current Medications Fluticasone/ Vilanterol (Breo Ellipta 100-25 Mcg Inh) 1 inh DAILY INH Last administered on 10/09/18 08:53; Admin Dose 1 INH; Start 10/02/18 at 21:00 Montelukast Sodium (Singulair) 10 mg QHS PO Last administered on 10/08/18 21:34; Admin Dose 10 MG; Start 10/02/18 at 21:00 Tamsulosin HCl (Flomax) 0.4 mg HS PO Last administered on 10/08/18 21:34; Admin Dose 0.4 MG; Start 10/02/18 at 21:00 Pantoprazole (Protonix Tab) 40 mg DAILY@06 PO Last administered on 10/09/18 05:32; Admin Dose 40 MG; Start 10/03/18 at 06:00 Azithromycin 250 mg/Sodium Chloride 250 ml @ 250 mls/hr Q24H IVPB Last administered on 10/08/18 16:58; Admin Dose 250 MLS/HR; Start 10/03/18 at 18:00 Ceftriaxone Sodium 50 ml @ 100 mls/hr Q24H IVPB Last administered on 10/08/18 17:02; Admin Dose 100 MLS/HR; Start 10/03/18 at 17:00 Enoxaparin Sodium (Lovenox) 30 mg Q24H SC Last administered on 10/08/18 21:36; Admin Dose 30 MG; Start 10/02/18 at 20:00 Acetaminophen (Tylenol Tab) 500 mg Q6H PRN PO MILD PAIN(1-3)OR ELEVATED TEMP; Start 10/02/18 at 20:00 Albuterol/ Ipratropium (Duoneb) 3 ml Q4HWA RESP THERAPY HHN Last administered on 10/09/18 08:50; Admin Dose 3 ML; Start 10/02/18 at 21:00 Guaifenesin (Mucinex) 600 mg Q6 PRN PO COUGH Last administered on 10/03/18 20: 34; Admin Dose 600 MG; Start 10/03/18 at 10:00 Epoetin Chase (Epogen (Esrd)) 10,000 units MoWeFr@17 SC Last administered on 10/07/18 17:48; Admin Dose 10,000 UNITS; Start 10/07/18 at 17:00 Amlodipine Besylate (Norvasc) 5 mg DAILY PO Last administered on 10/09/18at 08:53; Admin Dose 5 MG; Start 10/08/18 at 18:30 Assessment/Plan Hospital Course (Demo Recall) IMPRESSION 1. Likely chronic obstructive pulmonary disease exacerbation. 2. Possible viral tracheobronchitis. Plan 1. Agree with discharge planning Follow-up with me as an outpatient for pulmonary function testing DIAMOND SETHI MD, [facility] Oct 09, 2018 13:31
[2018-10-09 14:00] VITALS: BP 154/70; PULSE 80; RESP 17
--- NOTE | 2018-10-09 15:16 | NUR ---
patient is alert and oriented x4. patient denies shortness of breath, denies pain, and vital signs within normal limits. Remained afebrile this shift. patient is getting discharged home with cagle catheter in place with leg bag per doctor's order. patient tolerated cagle procedure well. patient's at bedside. signed the discharge paperwork due to patient hand being shaky. discharge paper work given to pt, pt's belongings with pt's , iv access removed and no bleeding noted. will call volunteer once patient's daughter comes to pick pt up. will be taken down with a wheelchair. will continue to monitor.
--- NOTE | 2018-10-09 15:33 | DS ---
DATE OF ADMISSION: 10/02/2018 DATE OF DISCHARGE: 10/09/2018 DISCHARGE DIAGNOSES: 1. Bilateral pneumonia. 2. Urinary retention. 3. Chronic kidney disease. 4. Anemia. 5. Chronic obstructive pulmonary disease. 6. Bronchiectasis. 7. Hypertension. PROCEDURES: Blood transfusion 1 unit packed red blood cells and CT of the chest. CONSULTANTS: Urology, Dr. Lalito Arias MD; nephrology, Russell Rice MD; pulmonary, Troy Monroy MD HISTORY OF PRESENT ILLNESS: The patient is an 83-year-old [place]ese male with history of COPD, bronch iectasis who had a 1-week history of productive cough which had been progressive. Mucus is green. H e had some chest pain especially with cough and shortness of breath, congestion, rhinorrhea, had some sore throat. Denied any muscle aches, fever or night sweats. He did have some chills. Appetite guzman d been significantly decreased. The patient was feeling weak, difficulty getting out of bed. There were ill contacts. The patient was sent from the office to the ER on the day of admission. X-ray sh owed bilateral infiltrates. The patient was started on treatment for pneumonia and admitted for furt her management. PHYSICAL EXAMINATION ON ADMISSION: VITAL SIGNS: Notable for temperature of 98.3, pulse 89, blood pressure 145/57, pulse ox 98% on 2 lit ers. GENERAL APPEARANCE: This is a thin, ill-appearing, elderly [place]ese male. He was in no acute distre ss. HEENT: Sclerae are anicteric. Oropharynx showed dry mucous membranes, otherwise clear. LUNGS: Had decreased breath sounds in the left base. A few scattered crackles in the bases. CARDIAC: Regular rate and rhythm. ABDOMEN: Bowel sounds are present. Abdomen is soft, nontender, nondistended. EXTREMITIES: Without cyanosis, clubbing or edema. DATA: On admission notable for chest x-ray showing bilateral lower lung infiltrates, small left pleu ral effusion, mild left basilar atelectasis and hyperinflation. White count was 13.4, hemoglobin 9.3 , platelets are 380. Sodium was 139, potassium 4.3, BUN 37, creatinine 2.82, glucose of 139. Lactat e was 1.9. Troponin less than 0.012. HOSPITAL COURSE: 1. Bilateral pneumonia. The patient was started on antibiotics and respiratory treatments for his p neumonia, clinically improved during his hospital course. He did have persistent x-ray findings and subsequently, did have a CT of the chest which showed bilateral pulmonary infiltrates, seen by silvina galvan who recommended continuing a course of antibiotics with close followup as an outpatient with reim aging and further pulmonary management as an outpatient. 2. Urinary retention. The patient developed urinary retention during his hospitalization requiring Carlisle placement, seen in urologic consultation by Dr. Arias who felt at least partly due to the med ications required to improve his pulmonary status. The patient is to continue his Carlisle as an outpat ient with followup with Dr. Arias in determination of timing of removal of Carlisle catheter. 3. Anemia. The patient with chronic kidney disease with anemia. He did require transfusion of 1 un it packed red blood cells with appropriate improvement in his hemoglobin. The patient also was given Epogen during his hospitalization. 4. Chronic kidney disease. The patient with elevated creatinine, seen in nephrology consultation by Dr. Rice. We would continue his supportive management and creatinine was mostly stable during his hospitalization. 5. Hypertension. The patient with elevation of blood pressure, was started on amlodipine which we w ill continue as an outpatient with close followup. 6. COPD, stable and bronchiectasis, stable. DISPOSITION: Discharge the patient home. CONDITION: Fair. MEDICATIONS: 1. Amlodipine 5 mg daily. 2. Levaquin 500 mg q.48 hours. 3. Omeprazole 40 mg daily. 4. Breo Ellipta 1 inhalation daily. 5. Singulair 10 mg daily. 6. Flomax 0.4 mg daily. 7. Ventolin inhaler as needed. FOLLOWUP: The patient is to arrange followup with me next week, with Dr. Monroy in 1 to [address] Arias in 2 weeks. The patient also will be sent home with a Carlisle catheter with a leg dangelo reed. Carlisle will be changed prior to discharge. Dictated By: BALBINA NICOLE/ALLYSSA Conf#: [id number] DID#: [id number] CC: DIAMOND MONROY MD;*EndCC*
--- NOTE | 2018-10-09 21:40 | CONS ---
Assessment/Plan Assessment/Plan Hospital Course (Demo Recall) 1. 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 His renal function is about the same and is stable . I will sign off at this point . 2. Anemia of chronic kidney disease. I have started the patient on Epogen. He will need to see me in 2 weeks as an out patient for continued Epogen treatment . 3. Chronic obstructive pulmonary disease with bilateral infiltrates on chest x- ray. He is doing better . 4. Monoclonal gammopathy of unknown significance. 5. Obstuctive uropathy . He has an indwelling cagle catheter . Consultation Date/Type/Reason Admit Date/Time Oct 02, 2018 at 17:24 Initial Consult Date 10/05/18 Type of Consult nephrology Requesting Provider: BALBINA VIVAS MD Date/Time of Note DATE: 10/09/18 TIME: 21:35 24 HR Interval Summary Free Text/Dictation This patient is being seen in nephrologic follow up . He has no complaints . Constitutional: no complaints, improved Exam/Review of Systems Exam Vitals Vital Signs Date Temp Pulse Resp B/P (MAP) Pulse Ox O2 O2 Flow FiO2 Time Delivery Rate 10/09/18 98.0 80 17 154/70 98 Room Air 14:00 (98) 10/09/18 21 08:55 Intake and Output 10/08/18 10/08/18 10/09/18 1515:00 23:00 07:00 IntakeIntake Total 900 ml 200 ml OutputOutput Total 1100 ml 2450 ml BalanceBalance -200 ml -2250 ml Constitutional: alert, oriented, frail Neck: supple, non-tender Respiratory: clear to auscultation, normal air movement Cardiovascular: regular rate and rhythm Gastrointestinal: soft, non-tender Musculoskeletal: nl extremities to inspection Results Result Diagram: 10/09/18 0424 10/09/18 0424 Results 24hrs Laboratory Tests Test 10/09/18 04:24 White Blood Count 5.2 Red Blood Count 2.79 L Hemoglobin 8.2 L Hematocrit 25.9 L Mean Corpuscular Volume 92.8 Mean Corpuscular Hemoglobin 29.4 Mean Corpuscular Hemoglobin Concent 31.7 L Red Cell Distribution Width 13.8 Platelet Count 311 Mean Platelet Volume 8.5 Immature Granulocytes % 1.100 H Neutrophils % 70.5 Lymphocytes % 16.1 Monocytes % 7.5 Eosinophils % 3.3 Basophils % 1.5 Nucleated Red Blood Cells % 0.0 Immature Granulocytes # 0.060 H Neutrophils # 3.7 Lymphocytes # 0.8 Monocytes # 0.4 Eosinophils # 0.2 Basophils # 0.1 Nucleated Red Blood Cells # 0.0 Sodium Level 144 Potassium Level 4.2 Chloride Level 104 Carbon Dioxide Level 27 Anion Gap 13 Blood Urea Nitrogen 22 H Creatinine 2.65 H Est Glomerular Filtrat Rate mL/min Glucose Level 105 Calcium Level 8.3 L LEONOR CANSECO MD Oct 09, 2018 21:40
== END 2018-10-09 17:18 | disposition home or self-care (01) | DRG 190 ==
LOC: E/R 15:12 → PP2 17:24
PROVIDERS: ADMIT Internal Medicine; ATTEND Internal Medicine
PROC: 30233N1 Transfusion of Nonautologous Red Blood Cells into Peripheral Vein, Percutaneous Approach (ICD-10-PCS; principal; 2018-10-03)
DX: J44.0 Chronic obstructive pulmonary disease with (acute) lower respiratory infection (principal); J18.9 Pneumonia, unspecified organism; J47.0 Bronchiectasis with acute lower respiratory infection; Z68.1 Body mass index [BMI] 19.9 or less, adult; N03.9 Chronic nephritic syndrome with unspecified morphologic changes; J44.1 Chronic obstructive pulmonary disease with (acute) exacerbation; I12.9 Hypertensive chronic kidney disease with stage 1 through stage 4 chronic kidney disease, or unspecified chronic kidney disease; N18.3 Chronic kidney disease, stage 3 (moderate); D63.1 Anemia in chronic kidney disease; R63.4 Abnormal weight loss; Z87.891 Personal history of nicotine dependence; R33.9 Retention of urine, unspecified; D47.2 Monoclonal gammopathy
CPT/HCPCS: 36415; 36430; 71045; 71250; 80048; 80053; 81001; 82550; 82553; 82728; 83540; 83605; 84484; 85025; 86850; 86900; 86901; 86920; 87040; 87086; 93005; 94640; 94664; 96365; J0456; J0696; J1650; J3480; J7030; J7050; P9016; Q4081

== ENCOUNTER → 2018-11-18 | Outpatient (CLI) | payer MEDICARE, OTHER ==
[~2018-11-18] MED LIST changes: -ALBU18HF IH; +AMLO-145 PO; -BECL8.7A5 IH; -CEPH-443 PO; +FLUT1AER INHALATION; +LEVO500T48 PO; +MONT10TA24 PO; +OMEP40CA6 PO; +TAMS0.4C2 PO
== END | disposition home or self-care (01) ==
LOC: C/S 09:59
PROVIDERS: ATTEND Internal Medicine Pulmonary Disease
DX: J18.9 Pneumonia, unspecified organism (principal)
CPT/HCPCS: 71250

== ENCOUNTER 2019-02-16 08:54 | Day surgery (SDC) | payer MEDICARE, OTHER ==
--- NOTE | 2019-02-11 11:16 | PREOPHP ---
DATE OF ADMISSION: 11/18/2018 REASON FOR CONSULTATION: Chronic kidney disease and proteinuria. HISTORY OF PRESENT ILLNESS: This 83-year-old man who has a history of chronic kidney disease and pro teinuria is being admitted to the hospital for an elective kidney biopsy under CT scan guidance. The patient was initially seen by me in September 2017 because of decreased renal function. At that time, he had a serum creatinine of 2.1 and was anemic. The patient has had proteinuria. 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 The patient has also been followed by Dr. Helen Tavarez, a local refuse and recycling worker/on cologist. She has done several bone marrow aspirates and biopsies on the patient. She was concerned that he might have multiple myeloma; although, the bone marrow aspirate and biopsies did not confirm that diagnosis. Dr. Tavarez recently called me and said that she is still concerned that the patient may have some form of myeloma kidney and/or light chain disease deposition in the kidney causing his chronic renal failure. If that is the case, then she would be inclined to treat him. I have discuss ed doing a kidney biopsy with the patient over the past year. We have decided now that this would be an appropriate time to do the kidney biopsy. I explained to the patient, his and his daughter who was on a speaker phone, the indications for the biopsy and that we are looking for a disease that could be treated. However, I did tell them that we may find that the patient has a disease that is not treatable. They seem to understand these facts. I also explained the process of kidney biopsy a nd the risks and benefits. PAST MEDICAL HISTORY: 1. The patient has the following past medical history, anemia, for which he has received Procrit in jections; although, he recently has had blood counts that have been higher, and he has not needed Pro crit injections. 2. Benign prostatic hypertrophy. 3. Chronic kidney disease stage III to IV. 4. Chronic obstructive pulmonary disease. 5. Gastroesophageal reflux disease. PAST SURGICAL HISTORY: Inguinal hernia repair on the right. FAMILY HISTORY: Mother and father are of heart disease. ALLERGIES: THE PATIENT HAS NO KNOWN DRUG ALLERGIES. SOCIAL HISTORY: The patient is . He is retired. He is a former smoker. He does not drink a lcohol. MEDICATIONS: Includes the followin. Amlodipine 5 mg a day. 2. Montelukast 10 mg a day. 3. Omeprazole 20 mg a day. 4. Breo Ellipta 1 puff daily. 5. Tamsulosin 0.4 mg a day. PHYSICAL EXAMINATION: GENERAL: Well-developed, thin man, in no apparent distress. VITAL SIGNS: Blood pressure 130/60, temperature 97.4, O2 saturation 98% on room air. HEENT: Head is normocephalic. Eyes: Extraocular muscles are intact. NOSE AND MOUTH: Normal. NECK: Supple. No neck vein distention. LUNGS: Diminished breath sounds bilaterally. No rales or wheezes. HEART: Regular rhythm. No murmurs, gallops or rubs. ABDOMEN: Soft, nontender, no masses or organomegaly. EXTREMITIES: No peripheral edema. Pedal pulses are 2+ bilaterally. NEUROLOGIC: Grossly intact without obvious neurologic deficits. IMPRESSION: 1. 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 This patient is being admitted now for an elective kidney biopsy. I have explained to the patient, the procedure that this will be done und er CT scan guidance by an interventional radiologist. I explained the risks and benefits of the proc edure. The patient, his and daughter were apprised and they agreed to proceed with the biopsy o f the kidney. PLAN: 1. Admit for a kidney biopsy under CT scan guidance. 2. Pathologic specimens will be sent to [facility] Pathology Department for nephro-p athologist to read. 3. The patient will follow up with me after the biopsy for further treatment. Dictated By: LEONOR CANSECO MD, ND/ALLYSSA Conf#: [id number] DID#: [id number] CC: LEONOR CANSECO MD;*EndCC*
[~2019-02-16] VITALS: Ht 167.6 cm; Wt 54.4 kg
[2019-02-16] MEDS ORDERED: SOD CHLORIDE 0.9% 1,000 ML IV SCH (09:56)
[2019-02-16 10:01] VITALS: Ht 167.6 cm; Wt 54.4 kg
[2019-02-16 10:02] VITALS: BP 140/62; PULSE 67; RESP 16
[2019-02-16] MEDS ORDERED: LIDOCAINE 2% (SDV) 5 ML INJ ONE (11:31)
[2019-02-16] MEDS ORDERED: FENTAnyl 50 MCG/ML VIAL ONE (11:32)
[2019-02-16 13:50] VITALS: BP 146/65; PULSE 65; RESP 16
[2019-02-16 14:20] VITALS: BP 142/64; PULSE 70; RESP 18
[2019-02-16 14:50] VITALS: BP 135/62; PULSE 72; RESP 18
[2019-02-16 15:20] VITALS: BP 124/59; PULSE 72; RESP 18
[2019-02-16 15:58] VITALS: BP 146/65; PULSE 70; RESP 18
== END 2019-02-16 16:05 | disposition home or self-care (01) ==
LOC: SDS 08:54
PROVIDERS: ATTEND Internal Medicine
DX: N18.4 Chronic kidney disease, stage 4 (severe) (principal); R80.9 Proteinuria, unspecified; N40.0 Benign prostatic hyperplasia without lower urinary tract symptoms; J44.9 Chronic obstructive pulmonary disease, unspecified; K21.9 Gastro-esophageal reflux disease without esophagitis
CPT/HCPCS: 50200; 77012; J3010

== ENCOUNTER 2019-03-08 20:59 | Inpatient (IN) | payer MEDICARE, OTHER ==
[~2019-03-08] VITALS: Ht 170.2 cm; Wt 51.0 kg
[~2019-03-08 20:59] MED LIST changes: -AMLO-145 PO; -FLUT1AER INHALATION; -LEVO500T48 PO; -MONT10TA24 PO
[2019-03-08 21:03] VITALS: Ht 170.2 cm; Wt 51.0 kg
[2019-03-08] MEDS ORDERED: SOD CHLORIDE 0.9% 500 ML IV STA (21:23)
[2019-03-08] MEDS ORDERED: ONDANSETRON 4 MG INJ IV STA (21:23)
[2019-03-08] MEDS ORDERED: morphine 4 MG/ML VIAL IV STA (21:23)
[2019-03-08] MEDS ORDERED: FLUT1AER INHALATION (22:35)
[2019-03-08] MEDS ORDERED: AMLO-145 PO (22:35)
[2019-03-08] MEDS ORDERED: MONT10TA24 PO (22:35)
[2019-03-08] MEDS ORDERED: DESO15CR9 TOP (22:35)
[2019-03-08] MEDS ORDERED: PRED10TA PO (22:35)
[2019-03-08] MEDS ORDERED: VANCOMYCIN 1 GM (PMX) 250 ML IVPB STA (23:27)
[2019-03-08] MEDS ORDERED: CEFEPIME 1GM/50 ML (PMX) 50 ML IVPB STA (23:27)
--- NOTE | 2019-03-09 00:18 | ERD ---
ER Documentation Chief Complaint Chief Complaint vomiting/diarrhea since last night. also c/o abd pain HPI This is an 83-year-old male, vomiting diarrhea since last night. He has had some mild epigastric abdominal pain as well. He said he vomited 7-8 times since dinner. No fevers no chills. Does complain of some mild epigastric pain. Denies any other current issues. ROS All systems reviewed and are negative except as per history of present illness. Medications Home Meds Reported Medications Desoximetasone* (Desoximetasone*) 0.25%-15GM Cream..g., 1 APPLIC TOP BID, #1 EA 03/08/19 Fluticasone-Vilanterol (Breo Ellipta Inhaler) 100-25 Mcg/Actuation Aer.pow.ba, 1 PUFF INHALATION DAILY, #1 INHALER 03/08/19 Montelukast Sodium* (Montelukast Sodium*) 10 Mg Tablet, 10 MG PO QHS for 30 Days, #30 03/08/19 Prednisone* (Prednisone*) 10 Mg Tab, 10 MG PO DAILY for 90 Days 03/08/19 Amlodipine Besylate* (Amlodipine Besylate*) 5 Mg Tablet, 5 MG PO DAILY for 30 Days, #30 03/08/19 Omeprazole* (Omeprazole*) 40 Mg Capsule.dr, 40 MG PO DAILY, #30 CAP 10/02/18 Tamsulosin Hcl* (Tamsulosin Hcl*) 0.4 Mg Cap.er.24h, 0.4 MG PO HS, CAP 10/02/18 Allergies Allergies: Coded Allergies: No Known Allergies (Verified Allergy, Unknown, 03/08/19) PMhx/Soc History of Surgery: Yes (HERNIA SX) Anesthesia Reaction: No Hx Neurological Disorder: No Hx Respiratory Disorders: Yes (COPD,PNA) Hx Cardiac Disorders: Yes (PAST HX OF HIGH CHOL, OFF MEDS NOW) Hx Psychiatric Problems: No Hx Miscellaneous Medical Probl: No Hx Alcohol Use: No Hx Substance Use: No Hx Tobacco Use: Yes Smoking Status: Former smoker Physical Exam Vitals Vital Signs Date Temp Pulse Resp B/P (MAP) Pulse Ox O2 O2 Flow FiO2 Time Delivery Rate 03/08/19 80 16 132/55 97 Room Air 22:16 (80) 03/08/19 97.0 87 18 106/54 97 21:03 (71) Physical Exam Const: No acute distress Head: Atraumatic Eyes: Normal Conjunctiva ENT: Normal External Ears, Nose and Mouth. Neck: Full range of motion. No meningismus. Resp: Clear to auscultation bilaterally Cardio: Regular rate and rhythm, no murmurs Abd: Soft, non tender, non distended. Normal bowel sounds Skin: No petechiae or rashes Back: No midline or flank tenderness Ext: No cyanosis, or edema Neur: Awake and alert Psych: Normal Mood and Affect Result Diagram: 03/08/19215403/08/192154 Results 24 hrs Laboratory Tests Test 03/08/19 21:55 White Blood Count 8.2 10^3/ul Red Blood Count 3.21 10^6/ul Hemoglobin 10.0 g/dl Hematocrit 30.1 % Mean Corpuscular Volume 93.8 fl Mean Corpuscular Hemoglobin 31.2 pg Mean Corpuscular Hemoglobin Concent 33.2 g/dl Red Cell Distribution Width 14.3 % Platelet Count 223 10^3/UL Mean Platelet Volume 9.1 fl Immature Granulocytes % 0.500 % Neutrophils % 82.3 % Lymphocytes % 7.5 % Monocytes % 8.6 % Eosinophils % 0.2 % Basophils % 0.9 % Nucleated Red Blood Cells % 0.0 /100WBC Immature Granulocytes # 0.040 10^3/ul Neutrophils # 6.7 10^3/ul Lymphocytes # 0.6 10^3/ul Monocytes # 0.7 10^3/ul Eosinophils # 0.0 10^3/ul Basophils # 0.1 10^3/ul Nucleated Red Blood Cells # 0.0 10^3/ul Sodium Level 143 mmol/L Potassium Level 3.7 mmol/L Chloride Level 111 mmol/L Carbon Dioxide Level 17 mmol/L Anion Gap 15 Blood Urea Nitrogen 55 mg/dl Creatinine 3.56 mg/dl Est Glomerular Filtrat Rate mL/min mL/min Glucose Level 94 mg/dl Calcium Level 8.8 mg/dl Total Bilirubin 0.5 mg/dl Direct Bilirubin 0.00 mg/dl Indirect Bilirubin 0.5 mg/dl Aspartate Amino Transf (AST/SGOT) 21 IU/L Alanine Aminotransferase (ALT/SGPT) 11 IU/L Alkaline Phosphatase 62 IU/L Total Protein 8.9 g/dl Albumin 4.5 g/dl Globulin 4.40 g/dl Albumin/Globulin Ratio 1.02 Lipase 81 U/L Current Medications Medications Dose Sig/Lj Start Time Status Last (Trade) Ordered Route PRN Stop Time Admin Dose Reason Admin Sodium 500 ml @ Q1H STAT 03/08/19 DC 03/08/19 Chloride 500 mls/hr IV 21:23 21:49 03/08/19 22:22 Morphine 4 mg ONCE STAT 03/08/19 DC 03/08/19 Sulfate IV 21:23 21:49 (morphine) 03/08/19 21:24 Ondansetron 4 mg ONCE STAT 03/08/19 DC 03/08/19 HCl (Zofran IV 21:23 21:49 Inj) 03/08/19 21:24 Cefepime HCl 50 ml @ ONCE STAT 03/08/19 DC 100 mls/hr IVPB 23:27 03/08/19 23:56 Vancomycin 250 ml @ ONCE STAT 03/08/19 HCl 125 mls/hr IVPB 23:27 03/09/19 01:26 Ondansetron 4 mg BRIDGE ORDER 03/09/19 HCl (Zofran PRN IV 00:30 Inj) NAUSEA/VOMITI 03/10/19 00:29 NG 650 mg ER BRIDGE 03/09/19 Acetaminophen PRN PO 00:30 (Tylenol .MILD PAIN 03/10/19 00:29 Tab) 1-3 OR TEMP Procedures/MDM Chest X-ray 1V Interpreted by me: Soft Tissue: No acute abnormalities Bones: No acute abnormalities Mediastinum/Cardiac Silhouette/Lungs: New right lower lobe infiltrate Medical decision making: Very pleasant patient comes in essentially for a pneumonia, this is likely aspirated. Start on antibiotics. Dr. Izaguirre made aware. Patient will be admitted to medical surgical floor. Departure Diagnosis: Primary Impression: Pneumonia Pneumonia type: due to unspecified organism Laterality: unspecified laterality Lung location: unspecified part of lung Qualified Codes: J18.9 - Pneumonia, unspecified organism Condition: Serious ERROL MARTELL Mar 09, 2019 00:18
[2019-03-09] MEDS ORDERED: ONDANSETRON 4 MG INJ IV PRN (00:30)
[2019-03-09] MEDS ORDERED: ACETAMINOPHEN 325 MG TAB PO PRN (00:30)
[2019-03-09 02:00] VITALS: BP 154/68; PULSE 77; RESP 17
[2019-03-09] MEDS ORDERED: VANCOMYCIN IV PER PHARMACY XX SCH (03:00)
[2019-03-09] MEDS: D5-NS + KCL 20 MEQ 1,000 ML IV SCH ×2 (04:04→20:30)
[2019-03-09] MEDS: ALBUTEROL 0.083% (NEB) 2.5 MG/3 ML AMP HHN SCH ×5 (04:41→20:04)
[2019-03-09 07:20] VITALS: BP 137/68; PULSE 68; RESP 16
[2019-03-09] MEDS: AMLODIPINE 5 MG TAB PO SCH (09:22)
[2019-03-09] MEDS: CEFEPIME 1GM/50 ML (PMX) 50 ML IVPB SCH (09:22)
[2019-03-09 14:03] VITALS: BP 123/58; PULSE 68; RESP 18
--- NOTE | 2019-03-09 16:42 | HP ---
DATE OF ADMISSION: 03/09/2019 CHIEF COMPLAINT: Weakness and diarrhea. HISTORY OF PRESENT ILLNESS: The patient is an 83-year-old [place] male with multiple medical proble ms including COPD, IgA nephropathy, who complained of nausea, vomiting and diarrhea starting Friday e ven. The patient had been in his usual state of health until after eating at a [place] restauran t Friday evening. Less than an hour later, the patient developed watery diarrhea, nausea, vomiting a nd abdominal pain. Diarrhea, the patient had multiple episodes. No bright red blood per rectum, no melena. Abdominal pain felt improved after bowel movement, but the patient had repeated episodes. N o others who ate at restaurant were ill. The patient had not had any raw foods, recent travel or cam ping. The patient denies any cold or flu symptoms. The patient's symptoms persisted and became incr easingly fatigued. The patient denied any chest pain, shortness of breath, coughing, fever, chills o r night sweats. His appetite had been decreased. The patient presented to the ER and was found to h ave a right middle lobe infiltrate which was new. The patient was given IV antibiotics and hydrated and admitted for further management. The patient currently feels better with resolution of his nause a, vomiting and abdominal pain. The patient denies any cough, chest pain or shortness of breath. 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 PAST SURGICAL HISTORY: Inguinal hernia. MEDICATIONS: 1. Flomax 0.4 mg daily. 2. ProAir p.r.n. 3. Breo 1 inhalation daily. 4. Singulair 10 mg daily. 5. Omeprazole 20 mg daily. 6. Prednisone 10 mg every other day. ALLERGIES: THE PATIENT HAS NO KNOWN DRUG ALLERGIES. SOCIAL HISTORY: The patient has not smoked in over 10 years, prior 100 pack year history. No alcoho l. 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 FAMILY HISTORY: The patient's father at 85 from heart disease. Mother at 87 from old age. Has 4 brothers who are with heart or lung disease. Two sisters with diabetes. So n at 18. He was killed. Two daughters who are alive and well. REVIEW OF SYSTEMS: GENERAL: The patient reports generalized fatigue, decreased appetite. Denies any fever, chills or n ight sweats. HEENT: The patient has had some mild headache. No congestion, no runny nose, sore throat, other ALYCIA NT complaints. RESPIRATORY: The patient denies any cough, wheeze, shortness of breath, other respiratory complaints . CARDIOVASCULAR: The patient denies any chest pains, palpitations, dizziness or other cardiovascular symptoms. GASTROINTESTINAL: As noted in HPI. GENITOURINARY: The patient denies any dysuria, frequency or other symptoms. NEUROLOGIC: The patient denies any numbness, tingling, focal weakness or other focal neurologic symp toms. PHYSICAL EXAMINATION: VITAL SIGNS: Temperature 97.8, pulse 68, blood pressure 137/68, pulse ox 98% on room air. GENERAL APPEARANCE: The patient is no acute distress. He appears nontoxic. HEENT: Normocephalic, atraumatic. Sclerae are anicteric. Oropharynx is clear. NECK: Supple without adenopathy. LUNGS: Have few bibasilar crackles; otherwise clear. CARDIAC: Regular rate and rhythm. ABDOMEN: Bowel sounds are present. Abdomen is soft, nontender, nondistended. EXTREMITIES: Without cyanosis, clubbing or edema. NEUROLOGIC: The patient is alert and oriented x3 with no focal neurologic findings. LABORATORY DATA: On admission, white count 8.2, hemoglobin 10, hematocrit 30.1, platelets 223. Sodi um 143, potassium 3.7, chloride 111, bicarbonate 17, BUN 55, creatinine 3.56, glucose 94. AST 21, AL T 11, alkaline phosphatase 62, albumin 4.5. DIAGNOSTIC DATA: Chest x-ray: Bibasilar densities which are stable, decreased right pleural effusio n compared to previous. CT of the abdomen showed small hemorrhage, recent biopsy site for kidney, di ffuse ileus, new right middle lobe infiltrate, bilateral lower lobe bronchiectasis which are stable. IMPRESSION: 1. Right middle lobe infiltrate. 2. Gastroenteritis. 3. Chronic kidney disease. 4. Anemia. 5. Chronic obstructive pulmonary disease. PLAN: Admit to med/surg. Careful hydration. Renal and pulmonary consult. IV antibiotics. Monitor labs. Continue Flomax, inhalers, Singulair, omeprazole or PPI. Dictated By: BALBINA NICOLE/ALLYSSA Conf#: [id number] [facility]#: [id number] CC: DIAMOND SETHI MD;*[facility]*
--- NOTE | 2019-03-09 17:10 | CONS ---
DATE OF ADMISSION: 03/09/2019 DATE OF CONSULTATION: TYPE OF CONSULTATION: Renal. Thank you, Dr. Vivas, for asking me to participate in medical management of this patient. REASON FOR CONSULTATION: Chronic kidney disease. HISTORY OF PRESENT ILLNESS: This 83-year-old man was in his usual state of health until yesterday wh en he developed vomiting with diarrhea. He came to the emergency room last night and was complaining of multiple episodes of vomiting 7 or 8 times since his dinner with diarrhea and abdominal pain. Th e patient is well known to me as I have followed him for several years because of chronic kidney dise ase. He did have a percutaneous left kidney biopsy on 02/16/2019. That kidney biopsy did show IgA n ephropathy. The biopsy was done because of chronic kidney disease, proteinuria and monoclonal gammop athy. 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 She has done several bone marrow biopsies and aspirations on the patient without finding multiple myeloma. S he was concerned that possibly he had light chain disease of his kidney. There was no evidence of th at on the kidney biopsy. The patient is awake and alert at this time. His is in the room. He is able to give a history. The patient on admission was found to have a right pleural effusion with continued bibasilar interstitial densities. There was some concern that he may have aspirated. He i s being treated for pneumonia. The patient does have chronic lung disease. His serum creatinine yes terday was 3.56 and today it is down to 3.1 which is about at his baseline. PAST MEDICAL HISTORY: Remarkable for: 1. Anemia due to chronic kidney disease. 2. Benign prostatic hypertrophy. At one time, he required an indwelling [place] catheter. 3. Stage IV chronic kidney disease. 4. COPD. 5. Gastroesophageal reflux disease. 6. Proteinuria. PAST SURGICAL HISTORY: Inguinal hernia repair on the right. FAMILY HISTORY: Both parents are from heart disease. ALLERGIES: NO KNOWN DRUG ALLERGIES. SOCIAL HISTORY: The patient is . He was a former smoker. He does not drink alcohol. CURRENT MEDICATIONS: Include the followin. Singulair 10 mg a day. 2. Flomax 0.4 mg a day. 3. Cefepime. 4. Amlodipine 5 mg a day. 5. Breo Ellipta 1 puff daily. 6. Albuterol q.4 hours. 7. Vancomycin. 8. IV fluids. 9. Zofran. 10. Acetaminophen. PHYSICAL EXAMINATION: GENERAL: At this time reveals an elderly, thin man in no apparent distress. VITAL SIGNS: Temperature 97.8, pulse is 68, respirations 16, blood pressure 137/68, O2 saturation of 98% on room air. HEENT: Head is normocephalic. Eyes: Extraocular muscles are intact. Nose, ears and mouth are norm al. NECK: Supple. No neck vein distention. LUNGS: Diminished breath sounds bilaterally. No rales or wheezes. HEART: Regular rhythm. No murmurs, gallops or rubs. ABDOMEN: Soft, nontender. No masses or megaly. EXTREMITIES: No peripheral edema. IMPRESSION: 1. Acute renal failure superimposed on chronic kidney disease. The patient's serum creatinine is lo wer today after getting some IV fluids. I suspect he was dehydrated from his acute gastroenteritis. 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 2. Anemia of chronic kidney disease. 3. Acute gastroenteritis. 4. Chronic obstructive pulmonary disease. 5. Possible pneumonia. PLAN: 1. I agree with IV fluids. 2. We will start Epogen for anemia support. 3. I will follow the patient along with you. Dictated By: LEONOR CANSECO MD, ND/ALLYSSA Conf#: [id number] DID#: [id number] CC: DIAMOND SETHI MD; BALBINA VIVAS MD;*[facility]*
[2019-03-09] MEDS: EPOETIN ALFA-EPBX (ESRD) 10,000 UNIT/ML VIAL SC SCH (18:17)
--- NOTE | 2019-03-09 18:34 | CONS ---
DATE OF ADMISSION: 03/09/2019 DATE OF CONSULTATION: TYPE OF CONSULTATION: Pulmonary. REASON FOR CONSULTATION: Shortness of breath. Thank you, Dr. Izaguirre, for this consultation. HISTORY OF PRESENT ILLNESS: This is an 83-year-old gentleman followed by my colleague, Dr. Caron murphy h a history of recent pneumonia, came in yesterday with vomiting, diarrhea, generalized weakness and mild shortness of breath. No orthopnea, no PND, no hemoptysis, no hematemesis. PAST MEDICAL HISTORY: Includes history of urinary retention, chronic kidney disease, COPD and bronch iectasis. MEDICATIONS: Per chart. ALLERGIES: NONE. SOCIAL HISTORY: He is current nonsmoker, no alcohol, no history of drug use. FAMILY HISTORY: Noncontributory. SYSTEMS REVIEW: A 12-point review of systems was negative other than that mentioned above. PHYSICAL EXAMINATION: GENERAL: Well-nourished, well-developed gentleman, comfortable at rest, in no acute distress. VITAL SIGNS: Currently afebrile, pulse is 68, blood pressure of 123/58, O2 saturation 96% on room ai r. NECK: Supple. No JVD or lymphadenopathy. CARDIAC: S1, S2. No added sounds. CHEST: Diminished air entry bilaterally. ABDOMEN: Soft, nontender. No guarding or rebound. EXTREMITIES: No cyanosis, clubbing or edema. NEUROLOGIC: Grossly intact. No focal deficits. LABORATORY DATA: White count 7.3, hemoglobin 9.3, platelets of 202. BUN 55, creatinine 3.1. INR 1. 06. DIAGNOSTIC DATA: Chest x-ray: Improved right pleural effusion with bibasilar atelectasis. CT abdom en and pelvis: Small hemorrhage inferior pole of right kidney in area recent biopsy, new right middl e lobe infiltrate with underlying bronchiectasis. IMPRESSION AND PLAN: 1. Bronchiectasis was likely new infiltrate. 2. Status post recent renal biopsy for renal insufficiency. 3. Chronic kidney disease. 4. Recent diarrhea, generalized weakness, unclear etiology. The patient will require: 1. Sputum cultures. 2. Check procalcitonin level. 3. Antibiotics pending procalcitonin. 4. DVT and GI prophylaxis. Dictated By: DIAMOND PEREZ/ALLYSSA Conf#: [id number] DID#: [id number] CC: BALBINA IZAGUIRRE MD;*[facility]*
[2019-03-09] MEDS ORDERED: TAMSULOSIN (SR) 0.4 MG CAP PO ONE (19:47)
[2019-03-09] MEDS ORDERED: MONTELUKAST 10 MG TAB ONE (19:47)
[2019-03-09 20:00] VITALS: BP 132/62; PULSE 70; RESP 19
[2019-03-09] MEDS: MONTELUKAST 10 MG TAB PO SCH (20:29)
[2019-03-09] MEDS: TAMSULOSIN (SR) 0.4 MG CAP PO SCH (20:29)
[2019-03-10] MEDS: ALBUTEROL 0.083% (NEB) 2.5 MG/3 ML AMP HHN SCH ×6 (00:45→20:05)
[2019-03-10 02:00] VITALS: BP 137/58; PULSE 77; RESP 18
[2019-03-10] MEDS ORDERED: PANTOPRAZOLE (EC) 40 MG TAB PO ONE (04:27)
[2019-03-10] MEDS: D5-NS + KCL 20 MEQ 1,000 ML IV SCH ×2 (05:40→11:43)
[2019-03-10] MEDS: PANTOPRAZOLE (EC) 40 MG TAB PO SCH (06:20)
[2019-03-10 08:19] VITALS: BP 128/59; PULSE 72; RESP 18
[2019-03-10] MEDS: FLUTICASONE/VILANTEROL 100-25 INH SCH (09:22)
[2019-03-10] MEDS: AMLODIPINE 5 MG TAB PO SCH (09:22)
[2019-03-10] MEDS: CEFEPIME 1GM/50 ML (PMX) 50 ML IVPB SCH (09:23)
--- NOTE | 2019-03-10 12:49 | CONS ---
Consult Date/Type/Reason Admit Date/Time Mar 09, 2019 at 00:09 Initial Consult Date Type of Consult Pulmonary Date/Time of Note DATE: 03/10/19 TIME: 12:44 Subjective Denies shortness of breath but still having significant diarrhea Objective Vital Signs Date Temp Pulse Resp B/P (MAP) Pulse Ox O2 O2 Flow FiO2 Time Delivery Rate 03/10/19 70 19 97 21 12:18 03/10/19 97.9 128/59 Room Air 08:19 (82) Intake and Output 03/09/19 03/09/19 03/10/19 1515:00 23:00 07:00 IntakeIntake Total 995 ml 775 ml 750 ml BalanceBalance 995 ml 775 ml 750 ml Exam PHYSICAL EXAMINATION: GENERAL: Well-nourished, well-developed gentleman, comfortable at rest, in no acute distress. VITAL SIGNS: NECK: Supple. No JVD or lymphadenopathy. CARDIAC: S1, S2. No added sounds. CHEST: Diminished air entry bilaterally. ABDOMEN: Soft, nontender. No guarding or rebound. EXTREMITIES: No cyanosis, clubbing or edema. NEUROLOGIC: Grossly intact. No focal deficits. Vent Setting Fraction of Inspired Oxygen pe: 21 Results/Medications Result Diagram: 03/10/19 0552 03/10/19 0552 Results 24 hrs Laboratory Tests Test 03/09/19 16:32 03/10/19 00:30 03/10/19 05:52 Procalcitonin 0.21 H Urine Color YELLOW Urine Clarity CLEAR Urine pH 5.0 Urine Specific [place] 1.012 Urine Ketones NEGATIVE Urine Nitrite NEGATIVE Urine Bilirubin NEGATIVE Urine Urobilinogen NEGATIVE Urine Leukocyte Esterase NEGATIVE Urine Microscopic RBC 77 H Urine Microscopic WBC 3 Urine Yeast (Budding) FEW A Urine Hemoglobin 3+ H Urine Glucose NEGATIVE Urine Total Protein 2+ H White Blood Count 5.2 # Red Blood Count 2.76 L Hemoglobin 8.5 L Hematocrit 26.2 L Mean Corpuscular Volume 94.9 Mean Corpuscular Hemoglobin 30.8 Mean Corpuscular Hemoglobin Concent 32.4 Red Cell Distribution Width 14.6 H Platelet Count 180 Mean Platelet Volume 9.5 Immature Granulocytes % 0.400 Neutrophils % 63.7 Lymphocytes % 18.4 Monocytes % 10.5 Eosinophils % 6.2 Basophils % 0.8 Nucleated Red Blood Cells % 0.0 Immature Granulocytes # 0.020 Neutrophils # 3.3 Lymphocytes # 1.0 Monocytes # 0.5 Eosinophils # 0.3 Basophils # 0.0 Nucleated Red Blood Cells # 0.0 Sodium Level 145 H Potassium Level 4.0 Chloride Level 118 H Carbon Dioxide Level 18 L Anion Gap 9 Blood Urea Nitrogen 39 #H Creatinine 2.74 H Est Glomerular Filtrat Rate mL/min Glucose Level 107 Calcium Level 8.1 L Magnesium Level 2.1 Random Vancomycin Level 6.8 Medications Current Medications Vancomycin HCl (Vanco Iv Per Pharmacy) VANCOMYCIN PER PHARMACY PER PROTOCOL XX ; Start 03/09/19 at 03:00 Potassium Chloride/Dextrose/ Sod Cl 1,000 ml @ 75 mls/hr [id number] IV Last administered on 03/10/19 11:43; Admin Dose 75 MLS/HR; Start 03/09/19 at 03:00 Cefepime HCl 50 ml @ 100 mls/hr DAILY IVPB Last administered on 03/10/19 09:23; Admin Dose 100 MLS/HR; Start 03/09/19 at 09:00 Albuterol (Proventil 0.083% (Neb)) 1.25 mg Q4H RESP THERAPY HHN Last administered on 03/10/19 12:17; Admin Dose 1.25 MG; Start 03/09/19 at 05:00 Montelukast Sodium (Singulair) 10 mg HS PO Last administered on 03/09/19 20:29; Admin Dose 10 MG; Start 03/09/19 at 21:00 Tamsulosin HCl (Flomax) 0.4 mg HS PO Last administered on 03/09/19 20:29; Admin Dose 0.4 MG; Start 03/09/19 at 21:00 Amlodipine Besylate (Norvasc) 5 mg DAILY PO Last administered on 03/10/19 09:22; Admin Dose 5 MG; Start 03/09/19 at 09:00 Fluticasone/ Vilanterol (Breo Ellipta 100-25 Mcg Inh) 1 inh DAILY INH Last administered on 03/10/19 09:22; Admin Dose 1 INH; Start 03/09/19 at 09:00 Pantoprazole (Protonix Tab) 40 mg DAILY@06 PO Last administered on 03/10/19 06:20; Admin Dose 40 MG; Start 03/10/19 at 06:00 Epoetin Chase-epbx (Retacrit (Esrd)) 10,000 unit TuTFranciaa@1700 SC Last adm inistered on 03/09/19at 18:17; Admin Dose 10,000 UNIT; Start 03/09/19 at 17:00 Assessment/Plan Hospital Course (Demo Recall) IMPRESSION 1. Bronchiectasis was likely new infiltrate. 2. Status post recent renal biopsy for renal insufficiency. 3. Chronic kidney disease. Worsening metabolic acidosis. 4. Recent diarrhea, generalized weakness, unclear etiology. Plan: 1. IV fluids. 2. ? CDIff, will send stool studies 4. DVT and GI prophylaxis. DIAMOND SETHI MD, [facility] Mar 10, 2019 12:49
--- NOTE | 2019-03-10 14:05 | CONS ---
Assessment/Plan Assessment/Plan Hospital Course (Demo Recall) 1. Acute renal failure superimposed on chronic kidney disease. He has biopsy- proven IgA nephropathy. His renal function has improved with IV fluids. I will decrease his IV fluid rate. 2. Anemia. I started him on Epogen. 3. Pulmonary infection being treated with antibiotics 4. Acute gastroenteritis, stool for C. difficile was negative. His GI symptoms are resolving. Consultation Date/Type/Reason Admit Date/Time Mar 09, 2019 at 00:09 Initial Consult Date Type of Consult Nephrology Date/Time of Note DATE: 03/10/19 TIME: 14:01 24 HR Interval Summary Free Text/Dictation This patient is being seen in nephrologic follow-up. He is awake and alert. He says that he is feeling better. He has had less diarrhea. His stool for C. difficile toxin is negative. Constitutional: no complaints, improved Exam/Review of Systems Exam Vitals Vital Signs Date Temp Pulse Resp B/P (MAP) Pulse Ox O2 O2 Flow FiO2 Time Delivery Rate 03/10/19 70 19 97 21 12:18 03/10/19 97.9 128/59 Room Air 08:19 (82) Intake and Output 03/09/19 03/09/19 03/10/19 1515:00 23:00 07:00 IntakeIntake Total 995 ml 775 ml 750 ml BalanceBalance 995 ml 775 ml 750 ml Constitutional: alert, oriented, frail Respiratory: clear to auscultation, normal air movement Cardiovascular: regular rate and rhythm Gastrointestinal: soft, non-tender Musculoskeletal: nl extremities to inspection Results Result Diagram: 03/10/19 0552 03/10/19 0552 Results 24hrs Laboratory Tests Test 03/09/19 16:32 03/10/19 00:30 03/10/19 05:52 Procalcitonin 0.21 H Urine Color YELLOW Urine Clarity CLEAR Urine pH 5.0 Urine Specific [place] 1.012 Urine Ketones NEGATIVE Urine Nitrite NEGATIVE Urine Bilirubin NEGATIVE Urine Urobilinogen NEGATIVE Urine Leukocyte Esterase NEGATIVE Urine Microscopic RBC 77 H Urine Microscopic WBC 3 Urine Yeast (Budding) FEW A Urine Hemoglobin 3+ H Urine Glucose NEGATIVE Urine Total Protein 2+ H White Blood Count 5.2 # Red Blood Count 2.76 L Hemoglobin 8.5 L Hematocrit 26.2 L Mean Corpuscular Volume 94.9 Mean Corpuscular Hemoglobin 30.8 Mean Corpuscular Hemoglobin Concent 32.4 Red Cell Distribution Width 14.6 H Platelet Count 180 Mean Platelet Volume 9.5 Immature Granulocytes % 0.400 Neutrophils % 63.7 Lymphocytes % 18.4 Monocytes % 10.5 Eosinophils % 6.2 Basophils % 0.8 Nucleated Red Blood Cells % 0.0 Immature Granulocytes # 0.020 Neutrophils # 3.3 Lymphocytes # 1.0 Monocytes # 0.5 Eosinophils # 0.3 Basophils # 0.0 Nucleated Red Blood Cells # 0.0 Sodium Level 145 H Potassium Level 4.0 Chloride Level 118 H Carbon Dioxide Level 18 L Anion Gap 9 Blood Urea Nitrogen 39 #H Creatinine 2.74 H Est Glomerular Filtrat Rate mL/min Glucose Level 107 Calcium Level 8.1 L Magnesium Level 2.1 Random Vancomycin Level 6.8 Medications Medication Current Medications Vancomycin HCl (Vanco Iv Per Pharmacy) VANCOMYCIN PER PHARMACY PER PROTOCOL XX ; Start 03/09/19 at 03:00 Potassium Chloride/Dextrose/ Sod Cl 1,000 ml @ 75 mls/hr [id number] IV Last administered on 03/10/19 11:43; Admin Dose 75 MLS/HR; Start 03/09/19 at 03:00 Cefepime HCl 50 ml @ 100 mls/hr DAILY IVPB Last administered on 03/10/19 09:23; Admin Dose 100 MLS/HR; Start 03/09/19 at 09:00 Albuterol (Proventil 0.083% (Neb)) 1.25 mg Q4H RESP THERAPY HHN Last admin istered on 03/10/19 12:17; Admin Dose 1.25 MG; Start 03/09/19 at 05:00 Montelukast Sodium (Singulair) 10 mg HS PO Last administered on 03/09/19 20:29; Admin Dose 10 MG; Start 03/09/19 at 21:00 Tamsulosin HCl (Flomax) 0.4 mg HS PO Last administered on 03/09/19 20:29; Admin Dose 0.4 MG; Start 03/09/19 at 21:00 Amlodipine Besylate (Norvasc) 5 mg DAILY PO Last administered on 03/10/19 09:22; Admin Dose 5 MG; Start 03/09/19 at 09:00 Fluticasone/ Vilanterol (Breo Ellipta 100-25 Mcg Inh) 1 inh DAILY INH Last administered on 03/10/19at 09:22; Admin Dose 1 INH; Start 03/09/19 at 09:00 Pantoprazole (Protonix Tab) 40 mg DAILY@06 PO Last administered on 03/10/19at 06:20; Admin Dose 40 MG; Start 03/10/19 at 06:00 Epoetin Chase-epbx (Retacrit (Esrd)) 10,000 unit TuThSa@1700 SC Last administered on 03/09/19at 18:17; Admin Dose 10,000 UNIT; Start 03/09/19 at 17:00 LEONOR CANSECO MD Mar 10, 2019 14:05
[2019-03-10 14:31] VITALS: BP 134/61; PULSE 72; RESP 18
[2019-03-10] MEDS ORDERED: VANCOMYCIN HCL 1.25 GM in SOD CHLORIDE 0.9% 250 ML IVPB SCH (19:00)
[2019-03-10] MEDS ORDERED: NA BICARBONATE 650 MG TAB ONE (19:33)
[2019-03-10 20:00] VITALS: BP 139/63; PULSE 72; RESP 18
[2019-03-10] MEDS: NA BICARBONATE 650 MG TAB PO SCH (20:15)
[2019-03-10] MEDS: MONTELUKAST 10 MG TAB PO SCH (20:15)
[2019-03-10] MEDS: TAMSULOSIN (SR) 0.4 MG CAP PO SCH (20:15)
[2019-03-11] MEDS: ALBUTEROL 0.083% (NEB) 2.5 MG/3 ML AMP HHN SCH ×6 (00:30→21:05)
[2019-03-11 02:02] VITALS: BP 136/63; PULSE 73; RESP 18
[2019-03-11] MEDS: PANTOPRAZOLE (EC) 40 MG TAB PO SCH (05:59)
--- NOTE | 2019-03-11 07:40 | PN ---
DATE: 03/10/2019 I am covering for Dr. Vivas. SUBJECTIVE: The patient overall feels well. Denies any shortness of breath. Had 1 loose stool this morning. Occasional cough. PHYSICAL EXAMINATION: VITAL SIGNS: Temperature 97.9, blood pressure 128/59, O2 sats on room air. CHEST: Reveals few crackles at the right base. HEART: S1, S2 heard. No definite gallops. ABDOMEN: Soft. EXTREMITIES: No edema. LABORATORY DATA: WBC count 5.2, hematocrit 26.2, platelet count is 180,000. BUN is 39, creatinine 2 .74, potassium 4. Procalcitonin 0.21. C. diff stool was negative. IMPRESSION: 1. Acute renal failure with IgA nephropathy superimposed on chronic renal failure. 2. Severe anemia. 3. Acute gastroenteritis, improving. 4. Right middle lobe pneumonia with bronchiectasis. PLAN: Continue IV fluids and antibiotics. Recheck CBC in a.m. The patient has been started on Epog en per Dr. Rice. Discussed case with Dr. Rice. Recheck labs in a.m. Dictated By: CEDRIC MCCRARY MD SR/NTS Conf#: [id number] DID#: [id number] CC: DIAMOND SETHI MD; BALBINA VIVAS MD;*End*
[2019-03-11 08:05] VITALS: BP 134/59; PULSE 72; RESP 18
[2019-03-11] MEDS: AMLODIPINE 5 MG TAB PO SCH (08:45)
[2019-03-11] MEDS: NA BICARBONATE 650 MG TAB PO SCH ×2 (08:45→20:39)
[2019-03-11] MEDS: CEFEPIME 1GM/50 ML (PMX) 50 ML IVPB SCH (08:46)
[2019-03-11] MEDS: FLUTICASONE/VILANTEROL 100-25 INH SCH (08:46)
--- NOTE | 2019-03-11 10:13 | CONS ---
Assessment/Plan Assessment/Plan Hospital Course (Demo Recall) 1. Acute renal failure superimposed on chronic kidney disease. He has biopsy- proven IgA nephropathy with FSGS. His renal function has improved . 2. Anemia. I started him on Epogen. 3. Pulmonary infection being treated with antibiotics 4. Acute gastroenteritis, stool for C. difficile was negative. His GI symptoms are resolving. Consultation Date/Type/Reason Admit Date/Time Mar 09, 2019 at 00:09 Initial Consult Date Type of Consult Nephrology Date/Time of Note DATE: 03/11/19 TIME: 10:12 24 HR Interval Summary Free Text/Dictation Livier is being seen in nephrologic follow-up. He has chronic kidney disease. He denies cough. He is overall feeling better. Constitutional: no complaints, improved Exam/Review of Systems Exam Vitals Vital Signs Date Temp Pulse Resp B/P (MAP) Pulse Ox O2 O2 Flow FiO2 Time Delivery Rate 03/11/19 72 18 99 21 08:49 03/11/19 98.4 134/59 Room Air 08:05 (84) Intake and Output 03/10/19 03/10/19 03/11/19 1515:00 23:00 07:00 IntakeIntake Total 785 ml 960 ml 550 ml OutputOutput Total 700 ml 200 ml 800 ml BalanceBalance 85 ml 760 ml -250 ml Constitutional: alert, oriented, frail Respiratory: clear to auscultation, diminished breath sounds Gastrointestinal: soft, non-tender Musculoskeletal: nl extremities to inspection Results Result Diagram: 03/11/19 0538 03/11/19 0539 Results 24hrs Laboratory Tests Test 03/11/19 05:38 03/11/19 05:39 White Blood Count 5.1 Red Blood Count 2.71 L Hemoglobin 8.3 L Hematocrit 25.0 L Mean Corpuscular Volume 92.3 Mean Corpuscular Hemoglobin 30.6 Mean Corpuscular Hemoglobin Concent 33.2 Red Cell Distribution Width 14.9 H Platelet Count 166 Mean Platelet Volume 9.8 Immature Granulocytes % 0.200 Neutrophils % 54.5 Lymphocytes % 14.8 L Monocytes % 8.4 Eosinophils % 21.3 H Basophils % 0.8 Nucleated Red Blood Cells % 0.0 Immature Granulocytes # 0.010 Neutrophils # 2.8 Lymphocytes # 0.8 Monocytes # 0.4 Eosinophils # 1.1 H Basophils # 0.0 Nucleated Red Blood Cells # 0.0 Sodium Level 145 H Potassium Level 3.6 Chloride Level 118 H Carbon Dioxide Level 18 L Anion Gap 9 Blood Urea Nitrogen 24 #H Creatinine 2.53 H Est Glomerular Filtrat Rate mL/min Glucose Level 93 Calcium Level 8.0 L Phosphorus Level 3.3 Magnesium Level 1.8 Total Bilirubin 0.2 Direct Bilirubin 0.00 Indirect Bilirubin 0.2 Aspartate Amino Transf (AST/SGOT) 26 Alanine Aminotransferase (ALT/SGPT) 21 Alkaline Phosphatase 59 Total Protein 6.8 Albumin 3.3 Globulin 3.50 H Albumin/Globulin Ratio 0.94 Medications Medication Current Medications Vancomycin HCl (Vanco Iv Per Pharmacy) VANCOMYCIN PER PHARMACY PER PROTOCOL XX ; Start 03/09/19 at 03:00 Cefepime HCl 50 ml @ 100 mls/hr DAILY IVPB Last administered on 03/11/19 08:46; Admin Dose 100 MLS/HR; Start 03/09/19 at 09:00 Albuterol (Proventil 0.083% (Neb)) 1.25 mg Q4H RESP THERAPY HHN Last administered on 03/11/19 08:43; Admin Dose 1.25 MG; Start 03/09/19 at 05:00 Montelukast Sodium (Singulair) 10 mg HS PO Last administered on 03/10/19 20:15; Admin Dose 10 MG; Start 03/09/19 at 21:00 Tamsulosin HCl (Flomax) 0.4 mg HS PO Last administered on 03/10/19 20:15; Admin Dose 0.4 MG; Start 03/09/19 at 21:00 Amlodipine Besylate (Norvasc) 5 mg DAILY PO Last administered on 03/11/19 08:45; Admin Dose 5 MG; Start 03/09/19 at 09:00 Fluticasone/ Vilanterol (Breo Ellipta 100-25 Mcg Inh) 1 inh DAILY INH Last administered on 03/11/19 08:46; Admin Dose 1 INH; Start 03/09/19 at 09:00 Pantoprazole (Protonix Tab) 40 mg DAILY@06 PO Last administered on 03/11/19 05:59; Admin Dose 40 MG; Start 03/10/19 at 06:00 Epoetin Chase-epbx (Retacrit (Esrd)) 10,000 unit TuThSa@1700 SC Last administered on 03/09/19at 18:17; Admin Dose 10,000 UNIT; Start 03/09/19 at 17:00 Sodium Bicarbonate (Sodium Bicarbonate Tab) 650 mg BID PO Last administered on 03/11/19at 08:45; Admin Dose 650 MG; Start 03/10/19 at 21:00 LEONOR CANSECO MD Mar 11, 2019 10:13
--- NOTE | 2019-03-11 12:42 | CONS ---
Consult Date/Type/Reason Admit Date/Time Mar 09, 2019 at 00:09 Initial Consult Date Type of Consult Pulmonary Date/Time of Note DATE: 03/11/19 TIME: 12:40 Subjective Remains stable. Objective Vital Signs Date Temp Pulse Resp B/P (MAP) Pulse Ox O2 O2 Flow FiO2 Time Delivery Rate 03/11/19 72 18 99 21 08:49 03/11/19 98.4 134/59 Room Air 08:05 (84) Intake and Output 03/10/19 03/10/19 03/11/19 1515:00 23:00 07:00 IntakeIntake Total 785 ml 960 ml 550 ml OutputOutput Total 700 ml 200 ml 800 ml BalanceBalance 85 ml 760 ml -250 ml Exam PHYSICAL EXAMINATION: GENERAL: Well-nourished, well-developed gentleman, comfortable at rest, in no acute distress. VITAL SIGNS: NECK: Supple. No JVD or lymphadenopathy. CARDIAC: S1, S2. No added sounds. CHEST: Diminished air entry bilaterally. ABDOMEN: Soft, nontender. No guarding or rebound. EXTREMITIES: No cyanosis, clubbing or edema. NEUROLOGIC: Grossly intact. No focal deficits. Vent Setting Fraction of Inspired Oxygen pe: 21 Results/Medications Result Diagram: 03/11/19 0538 03/11/19 0539 Results 24 hrs Laboratory Tests Test 03/11/19 05:38 03/11/19 05:39 White Blood Count 5.1 Red Blood Count 2.71 L Hemoglobin 8.3 L Hematocrit 25.0 L Mean Corpuscular Volume 92.3 Mean Corpuscular Hemoglobin 30.6 Mean Corpuscular Hemoglobin Concent 33.2 Red Cell Distribution Width 14.9 H Platelet Count 166 Mean Platelet Volume 9.8 Immature Granulocytes % 0.200 Neutrophils % 54.5 Lymphocytes % 14.8 L Monocytes % 8.4 Eosinophils % 21.3 H Basophils % 0.8 Nucleated Red Blood Cells % 0.0 Immature Granulocytes # 0.010 Neutrophils # 2.8 Lymphocytes # 0.8 Monocytes # 0.4 Eosinophils # 1.1 H Basophils # 0.0 Nucleated Red Blood Cells # 0.0 Sodium Level 145 H Potassium Level 3.6 Chloride Level 118 H Carbon Dioxide Level 18 L Anion Gap 9 Blood Urea Nitrogen 24 #H Creatinine 2.53 H Est Glomerular Filtrat Rate mL/min Glucose Level 93 Calcium Level 8.0 L Phosphorus Level 3.3 Magnesium Level 1.8 Total Bilirubin 0.2 Direct Bilirubin 0.00 Indirect Bilirubin 0.2 Aspartate Amino Transf (AST/SGOT) 26 Alanine Aminotransferase (ALT/SGPT) 21 Alkaline Phosphatase 59 Total Protein 6.8 Albumin 3.3 Globulin 3.50 H Albumin/Globulin Ratio 0.94 Medications Current Medications Vancomycin HCl (Vanco Iv Per Pharmacy) VANCOMYCIN PER PHARMACY PER PROTOCOL XX ; Start 03/09/19 at 03:00 Cefepime HCl 50 ml @ 100 mls/hr DAILY IVPB Last administered on 03/11/19 08:46; Admin Dose 100 MLS/HR; Start 03/09/19 at 09:00 Albuterol (Proventil 0.083% (Neb)) 1.25 mg Q4H RESP THERAPY HHN Last ad ministered on 03/11/19 08:43; Admin Dose 1.25 MG; Start 03/09/19 at 05:00 Montelukast Sodium (Singulair) 10 mg HS PO Last administered on 03/10/19 20:15; Admin Dose 10 MG; Start 03/09/19 at 21:00 Tamsulosin HCl (Flomax) 0.4 mg HS PO Last administered on 03/10/19 20:15; Admin Dose 0.4 MG; Start 03/09/19 at 21:00 Amlodipine Besylate (Norvasc) 5 mg DAILY PO Last administered on 03/11/19 08:45; Admin Dose 5 MG; Start 03/09/19 at 09:00 Fluticasone/ Vilanterol (Breo Ellipta 100-25 Mcg Inh) 1 inh DAILY INH Last administered on 03/11/19 08:46; Admin Dose 1 INH; Start 03/09/19 at 09:00 Pantoprazole (Protonix Tab) 40 mg DAILY@06 PO Last administered on 03/11/19 05:59; Admin Dose 40 MG; Start 03/10/19 at 06:00 Epoetin Chase-epbx (Retacrit (Esrd)) 10,000 unit TuThSa@1700 SC Last administere d on 03/09/19 18:17; Admin Dose 10,000 UNIT; Start 03/09/19 at 17:00 Sodium Bicarbonate (Sodium Bicarbonate Tab) 650 mg BID PO Last administered on 6/27/19at 08:45; Admin Dose 650 MG; Start 03/10/19 at 21:00 Assessment/Plan Hospital Course (Demo Recall) IMPRESSION 1. Bronchiectasis was likely new infiltrate. 2. Status post recent renal biopsy for renal insufficiency. 3. Chronic kidney disease. Worsening metabolic acidosis. 4. Recent diarrhea, generalized weakness, unclear etiology. Plan: 1. Encourage OOB 2. stool studies 4. DVT and GI prophylaxis. DIAMOND SETHI MD, [facility] Mar 11, 2019 12:41
--- NOTE | 2019-03-11 14:02 | PN ---
Date/Time of Note Date/Time of Note DATE: 03/11/19 TIME: 13:58 Assessment/Plan VTE Prophylaxis Risk score (from [facility])>0 risk: 3 SCD applied (from [facility] [place]): No SCD contraindicated: low risk/ambulating Pharmacological prophylaxis: NA/contraindicated Pharm contraindication: low risk/ambulating Lines/Catheters IV Catheter Type (from [facility]): Peripheral IV Assessment/Plan Assessment/Plan A: RML infiltrate gastroenteritis improving ckd anemia copd P: encourage ambulation cont current rx cont abx discussed with Dr. Monroy and Dr. Garnett anticipate d/c home soon outpt rx with levaquin 250mg bid monitor labs Result Diagram: 03/11/19 0538 03/11/19 0539 Results 24hrs Laboratory Tests Test 03/11/19 05:38 03/11/19 05:39 White Blood Count 5.1 Red Blood Count 2.71 L Hemoglobin 8.3 L Hematocrit 25.0 L Mean Corpuscular Volume 92.3 Mean Corpuscular Hemoglobin 30.6 Mean Corpuscular Hemoglobin Concent 33.2 Red Cell Distribution Width 14.9 H Platelet Count 166 Mean Platelet Volume 9.8 Immature Granulocytes % 0.200 Neutrophils % 54.5 Lymphocytes % 14.8 L Monocytes % 8.4 Eosinophils % 21.3 H Basophils % 0.8 Nucleated Red Blood Cells % 0.0 Immature Granulocytes # 0.010 Neutrophils # 2.8 Lymphocytes # 0.8 Monocytes # 0.4 Eosinophils # 1.1 H Basophils # 0.0 Nucleated Red Blood Cells # 0.0 Sodium Level 145 H Potassium Level 3.6 Chloride Level 118 H Carbon Dioxide Level 18 L Anion Gap 9 Blood Urea Nitrogen 24 #H Creatinine 2.53 H Est Glomerular Filtrat Rate mL/min Glucose Level 93 Calcium Level 8.0 L Phosphorus Level 3.3 Magnesium Level 1.8 Total Bilirubin 0.2 Direct Bilirubin 0.00 Indirect Bilirubin 0.2 Aspartate Amino Transf (AST/SGOT) 26 Alanine Aminotransferase (ALT/SGPT) 21 Alkaline Phosphatase 59 Total Protein 6.8 Albumin 3.3 Globulin 3.50 H Albumin/Globulin Ratio 0.94 Subjective 24 Hr Interval Summary Free Text/Dictation Pt feeling better, still some loose stool last pm, but improving. No abd pain, n/v, cp, sob, cough. Ambulating some short distances without probs. Exam/Review of Systems Exam Vitals Vital Signs Date Temp Pulse Resp B/P (MAP) Pulse Ox O2 O2 Flow FiO2 Time Delivery Rate 03/11/19 80 18 21 13:06 03/11/19 99 08:49 03/11/19 98.4 134/59 Room Air 08:05 (84) Intake and Output 03/10/19 03/10/19 03/11/19 1515:00 23:00 07:00 IntakeIntake Total 785 ml 960 ml 550 ml OutputOutput Total 700 ml 200 ml 800 ml BalanceBalance 85 ml 760 ml -250 ml Exam gen- nad, nontoxic lungs- few basilar crackles heart- RRR abd- +BS, soft, nontender ext- no edema Results Results 24hrs Laboratory Tests Test 03/11/19 05:38 03/11/19 05:39 White Blood Count 5.1 Red Blood Count 2.71 L Hemoglobin 8.3 L Hematocrit 25.0 L Mean Corpuscular Volume 92.3 Mean Corpuscular Hemoglobin 30.6 Mean Corpuscular Hemoglobin Concent 33.2 Red Cell Distribution Width 14.9 H Platelet Count 166 Mean Platelet Volume 9.8 Immature Granulocytes % 0.200 Neutrophils % 54.5 Lymphocytes % 14.8 L Monocytes % 8.4 Eosinophils % 21.3 H Basophils % 0.8 Nucleated Red Blood Cells % 0.0 Immature Granulocytes # 0.010 Neutrophils # 2.8 Lymphocytes # 0.8 Monocytes # 0.4 Eosinophils # 1.1 H Basophils # 0.0 Nucleated Red Blood Cells # 0.0 Sodium Level 145 H Potassium Level 3.6 Chloride Level 118 H Carbon Dioxide Level 18 L Anion Gap 9 Blood Urea Nitrogen 24 #H Creatinine 2.53 H Est Glomerular Filtrat Rate mL/min Glucose Level 93 Calcium Level 8.0 L Phosphorus Level 3.3 Magnesium Level 1.8 Total Bilirubin 0.2 Direct Bilirubin 0.00 Indirect Bilirubin 0.2 Aspartate Amino Transf (AST/SGOT) 26 Alanine Aminotransferase (ALT/SGPT) 21 Alkaline Phosphatase 59 Total Protein 6.8 Albumin 3.3 Globulin 3.50 H Albumin/Globulin Ratio 0.94 Medications Medication Current Medications Vancomycin HCl (Vanco Iv Per Pharmacy) VANCOMYCIN PER PHARMACY PER PROTOCOL XX ; Start 03/09/19 at 03:00 Cefepime HCl 50 ml @ 100 mls/hr DAILY IVPB Last administered on 03/11/19at 08:46; Admin Dose 100 MLS/HR; Start 03/09/19 at 09:00 Albuterol (Proventil 0.083% (Neb)) 1.25 mg Q4H RESP THERAPY HHN Last administered on 03/11/19 13:04; Admin Dose 1.25 MG; Start 03/09/19 at 05:00 Montelukast Sodium (Singulair) 10 mg HS PO Last administered on 03/10/19 20:15; Admin Dose 10 MG; Start 03/09/19 at 21:00 Tamsulosin HCl (Flomax) 0.4 mg HS PO Last administered on 03/10/19 20:15; Admin Dose 0.4 MG; Start 03/09/19 at 21:00 Amlodipine Besylate (Norvasc) 5 mg DAILY PO Last administered on 03/11/19 08:45; Admin Dose 5 MG; Start 03/09/19 at 09:00 Fluticasone/ Vilanterol (Breo Ellipta 100-25 Mcg Inh) 1 inh DAILY INH Last administered on 03/11/19 08:46; Admin Dose 1 INH; Start 03/09/19 at 09:00 Pantoprazole (Protonix Tab) 40 mg DAILY@06 PO Last administered on 03/11/19 05:59; Admin Dose 40 MG; Start 03/10/19 at 06:00 Epoetin Chase-epbx (Retacrit (Esrd)) 10,000 unit TuThSa@1700 SC Last administered on 03/09/19 18:17; Admin Dose 10,000 UNIT; Start 03/09/19 at 17:00 Sodium Bicarbonate (Sodium Bicarbonate Tab) 650 mg BID PO Last administered on 03/11/19 08:45; Admin Dose 650 MG; Start 03/10/19 at 21:00 BALBINA VIVAS MD Mar 11, 2019 14:02
[2019-03-11 14:50] VITALS: BP 137/62; PULSE 86; RESP 20
[2019-03-11] MEDS: EPOETIN ALFA-EPBX (ESRD) 10,000 UNIT/ML VIAL SC SCH (16:09)
[2019-03-11 20:20] VITALS: BP 130/63; PULSE 87; RESP 18
[2019-03-11] MEDS: MONTELUKAST 10 MG TAB PO SCH (20:39)
[2019-03-11] MEDS: TAMSULOSIN (SR) 0.4 MG CAP PO SCH (20:40)
[2019-03-12] MEDS: ALBUTEROL 0.083% (NEB) 2.5 MG/3 ML AMP HHN SCH ×4 (01:06→13:02)
[2019-03-12 02:12] VITALS: BP 121/45; PULSE 83; RESP 18
[2019-03-12] MEDS: PANTOPRAZOLE (EC) 40 MG TAB PO SCH (06:34)
[2019-03-12] MEDS: NA BICARBONATE 650 MG TAB PO SCH (08:25)
[2019-03-12] MEDS: CEFEPIME 1GM/50 ML (PMX) 50 ML IVPB SCH (08:25)
[2019-03-12] MEDS: AMLODIPINE 5 MG TAB PO SCH (08:25)
[2019-03-12] MEDS: FLUTICASONE/VILANTEROL 100-25 INH SCH (08:25)
[2019-03-12 08:59] VITALS: BP 118/58; PULSE 81; RESP 16
--- NOTE | 2019-03-12 11:50 | CONS ---
Assessment/Plan Assessment/Plan Hospital Course (Demo Recall) 1. Acute renal failure superimposed on chronic kidney disease. He has biopsy- proven IgA nephropathy with FSGS. His renal function has improved and he is back to his baseline renal function. I am going to sign off at this point and will see again on request. I did give him a prescription for sodium bicarbonate tablets to treat his metabolic acidosis. He should continue those as an outpat ient. I asked him to come in and see me in 2 weeks after he is discharged. 2. Anemia. I started him on Epogen. 3. Pulmonary infection being treated with antibiotics 4. Acute gastroenteritis, stool for C. difficile was negative. His GI symptoms are resolving. Consultation Date/Type/Reason Admit Date/Time Mar 09, 2019 at 00:09 Initial Consult Date Type of Consult Nephrology Date/Time of Note DATE: 03/12/19 TIME: 11:45 24 HR Interval Summary Free Text/Dictation Livier is being seen in nephrologic follow-up. He is awake and alert. He says that he feels well. He does not have a cough. Constitutional: no complaints, improved Exam/Review of Systems Exam Vitals Vital Signs Date Temp Pulse Resp B/P (MAP) Pulse Ox O2 O2 Flow FiO2 Time Delivery Rate 03/12/19 98.2 81 16 118/58 98 08:59 (78) 03/12/19 21 05:41 03/11/19 Room Air 14:50 Intake and Output 03/11/19 03/11/19 03/12/19 1515:00 23:00 07:00 IntakeIntake Total 890 ml 220 ml 1000 ml OutputOutput Total 550 ml 150 ml BalanceBalance 340 ml 70 ml 1000 ml Constitutional: alert, oriented, frail Neck: supple Respiratory: clear to auscultation, normal air movement Cardiovascular: regular rate and rhythm Gastrointestinal: soft, non-tender Musculoskeletal: nl extremities to inspection Results Result Diagram: 03/12/19 0515 03/12/19 0515 Results 24hrs Laboratory Tests Test 03/12/19 05:15 White Blood Count 6.5 # Red Blood Count 2.73 L Hemoglobin 8.3 L Hematocrit 24.8 L Mean Corpuscular Volume 90.8 Mean Corpuscular Hemoglobin 30.4 Mean Corpuscular Hemoglobin Concent 33.5 Red Cell Distribution Width 14.7 H Platelet Count 172 Mean Platelet Volume 9.5 Immature Granulocytes % 0.500 H Neutrophils % 58.6 Lymphocytes % 14.6 L Monocytes % 6.6 Eosinophils % 18.8 H Basophils % 0.9 Nucleated Red Blood Cells % 0.0 Immature Granulocytes # 0.030 Neutrophils # 3.8 Lymphocytes # 1.0 Monocytes # 0.4 Eosinophils # 1.2 H Basophils # 0.1 Nucleated Red Blood Cells # 0.0 Sodium Level 144 Potassium Level 3.7 Chloride Level 115 H Carbon Dioxide Level 19 L Anion Gap 10 Blood Urea Nitrogen 21 H Creatinine 2.51 H Est Glomerular Filtrat Rate mL/min Glucose Level 101 Calcium Level 8.3 L Medications Medication Current Medications Vancomycin HCl (Vanco Iv Per Pharmacy) VANCOMYCIN PER PHARMACY PER PROTOCOL XX ; Start 03/09/19 at 03:00 Cefepime HCl 50 ml @ 100 mls/hr DAILY IVPB Last administered on 03/12/19 08:2 5; Admin Dose 100 MLS/HR; Start 03/09/19 at 09:00 Albuterol (Proventil 0.083% (Neb)) 1.25 mg Q4H RESP THERAPY HHN Last administered on 03/12/19 05:41; Admin Dose 1.25 MG; Start 03/09/19 at 05:00 Montelukast Sodium (Singulair) 10 mg HS PO Last administered on 03/11/19 20:39; Admin Dose 10 MG; Start 03/09/19 at 21:00 Tamsulosin HCl (Flomax) 0.4 mg HS PO Last administered on 03/11/19 20:40; Ad min Dose 0.4 MG; Start 03/09/19 at 21:00 Amlodipine Besylate (Norvasc) 5 mg DAILY PO Last administered on 03/12/19 08:25; Admin Dose 5 MG; Start 03/09/19 at 09:00 Fluticasone/ Vilanterol (Breo Ellipta 100-25 Mcg Inh) 1 inh DAILY INH Last administered on 03/12/19 08:25; Admin Dose 1 INH; Start 03/09/19 at 09:00 Pantoprazole (Protonix Tab) 40 mg DAILY@06 PO Last administered on 03/12/19 06:34; Admin Dose 40 MG; Start 03/10/19 at 06:00 Epoetin Chase-epbx (Retacrit (Esrd)) 10,000 unit TuThSa@1700 SC Last administered on 03/11/19at 16:09; Admin Dose 10,000 UNIT; Start 03/09/19 at 17:00 Sodium Bicarbonate (Sodium Bicarbonate Tab) 650 mg BID PO Last administered on 03/12/19at 08:25; Admin Dose 650 MG; Start 03/10/19 at 21:00 LEONOR CANSECO MD Mar 12, 2019 11:50
[2019-03-12] MEDS ORDERED: NA BICARBONATE 650 MG TAB PO SCH (13:00)
--- NOTE | 2019-03-12 14:14 | PN ---
Date/Time of Note Date/Time of Note DATE: 03/12/19 TIME: 14:09 Assessment/Plan VTE [place]axis [place] [facility] [place]: 4 [place] [facility] [place] contraindicated: low risk/ambulating Pharmacological prophylaxis: NA/contraindicated Pharm contraindication: low risk/ambulating, renal impairment Lines/Catheters IV Catheter Type (from [facility]): Saline Lock Assessment/Plan Assessment/Plan A: rml infiltrate gastroenteritis acute on chronic rf anemia copd P: d/c home meds- levaquin 250mg qod bicarb 650mg tid omeprazole 20mg daily singulair 10mg daily flomax 0.4mg daily epogen norvasc 5mg daily breo daily albuterol prn f/u with me next week, Dr. Belcher in 2wks, Dr. Reardon in 2wks Result Diagram: 03/12/1951403/12/19 0515 Results 24hrs Laboratory Tests Test 03/12/19 05:15 White Blood Count 6.5 # Red Blood Count 2.73 L Hemoglobin 8.3 L Hematocrit 24.8 L Mean Corpuscular Volume 90.8 Mean Corpuscular Hemoglobin 30.4 Mean Corpuscular Hemoglobin Concent 33.5 Red Cell Distribution Width 14.7 H Platelet Count 172 Mean Platelet Volume 9.5 Immature Granulocytes % 0.500 H Neutrophils % 58.6 Lymphocytes % 14.6 L Monocytes % 6.6 Eosinophils % 18.8 H Basophils % 0.9 Nucleated Red Blood Cells % 0.0 Immature Granulocytes # 0.030 Neutrophils # 3.8 Lymphocytes # 1.0 Monocytes # 0.4 Eosinophils # 1.2 H Basophils # 0.1 Nucleated Red Blood Cells # 0.0 Sodium Level 144 Potassium Level 3.7 Chloride Level 115 H Carbon Dioxide Level 19 L Anion Gap 10 Blood Urea Nitrogen 21 H Creatinine 2.51 H Est Glomerular Filtrat Rate mL/min Glucose Level 101 Calcium Level 8.3 L Subjective 24 Hr Interval Summary Free Text/Dictation Pt feeling better, diarrhea resolved. Normal bm this am. No abd pain, cp. Breathing at baseline. Ready to go home. Exam/Review of Systems Exam Vitals Vital Signs Date Temp Pulse Resp B/P (MAP) Pulse Ox O2 O2 Flow FiO2 Time Delivery Rate 03/12/19 98.2 81 16 118/58 98 08:59 (78) 03/12/19 21 05:41 03/11/19 Room Air 14:50 Intake and Output 03/11/19 03/11/19 03/12/19 1515:00 23:00 07:00 IntakeIntake Total 890 ml 220 ml 1000 ml OutputOutput Total 550 ml 150 ml BalanceBalance 340 ml 70 ml 1000 ml Exam gen- nad, nontoxic lungs- few basilar crackles heart- RRR abd- +BS, soft, nontender ext- no edema Results Results 24hrs Laboratory Tests Test 03/12/19 05:15 White Blood Count 6.5 # Red Blood Count 2.73 L Hemoglobin 8.3 L Hematocrit 24.8 L Mean Corpuscular Volume 90.8 Mean Corpuscular Hemoglobin 30.4 Mean Corpuscular Hemoglobin Concent 33.5 Red Cell Distribution Width 14.7 H Platelet Count 172 Mean Platelet Volume 9.5 Immature Granulocytes % 0.500 H Neutrophils % 58.6 Lymphocytes % 14.6 L Monocytes % 6.6 Eosinophils % 18.8 H Basophils % 0.9 Nucleated Red Blood Cells % 0.0 Immature Granulocytes # 0.030 Neutrophils # 3.8 Lymphocytes # 1.0 Monocytes # 0.4 Eosinophils # 1.2 H Basophils # 0.1 Nucleated Red Blood Cells # 0.0 Sodium Level 144 Potassium Level 3.7 Chloride Level 115 H Carbon Dioxide Level 19 L Anion Gap 10 Blood Urea Nitrogen 21 H Creatinine 2.51 H Est Glomerular Filtrat Rate mL/min Glucose Level 101 Calcium Level 8.3 L Medications Medication Current Medications Vancomycin HCl (Vanco Iv Per Pharmacy) VANCOMYCIN PER PHARMACY PER PROTOCOL XX ; Start 03/09/19 at 03:00 Cefepime HCl 50 ml @ 100 mls/hr DAILY IVPB Last administered on 03/12/19at 08:25; Admin Dose 100 MLS/HR; Start 03/09/19 at 09:00 Albuterol (Proventil 0.083% (Neb)) 1.25 mg Q4H RESP THERAPY HHN Last administered on 03/12/19at 13:02; Admin Dose 1.25 MG; Start 03/09/19 at 05:00 Montelukast Sodium (Singulair) 10 mg HS PO Last administered on 03/11/19at 20:39; Admin Dose 10 MG; Start 03/09/19 at 21:00 Tamsulosin HCl (Flomax) 0.4 mg HS PO Last administered on 03/11/19at 20:40; Admin Dose 0.4 MG; Start 03/09/19 at 21:00 Amlodipine Besylate (Norvasc) 5 mg DAILY PO Last administered on 03/12/19 08:25; Admin Dose 5 MG; Start 03/09/19 at 09:00 Fluticasone/ Vilanterol (Breo Ellipta 100-25 Mcg Inh) 1 inh DAILY INH Last administered on 03/12/19 08:25; Admin Dose 1 INH; Start 03/09/19 at 09:00 Pantoprazole (Protonix Tab) 40 mg DAILY@06 PO Last administered on 03/12/19 06:34; Admin Dose 40 MG; Start 03/10/19 at 06:00 Epoetin Chase-epbx (Retacrit (Esrd)) 10,000 unit TuThSa@1700 SC Last administered on 03/11/19at 16:09; Admin Dose 10,000 UNIT; Start 03/09/19 at 17:00 Sodium Bicarbonate (Sodium Bicarbonate Tab) 650 mg TID PO Last administered on 03/12/19at 13:46; Admin Dose 650 MG; Start 03/12/19 at 13:00 Miscellaneous Information (*Rx Drug Level Order Reminder*) 1 0500 ONCE XX ; Start 03/13/19 at 05:00; Stop 03/13/19 at 05:01 BALBINA VIVAS MD Mar 12, 2019 14:14
--- NOTE | 2019-03-12 14:15 | PDOCDIS ---
Discharge Instructions CONDITION [id number] Patient Condition: [id number] Fair FOLLOW UP/APPOINTMENTS Follow-up Plan f/u with Dr. Izaguirre next week, Dr. Garnett in 2wks, Dr. Reardon in 2wks. BALBINA IZAGUIRRE MD Mar 12, 2019 14:15
[2019-03-12] MEDS ORDERED: LEVO250T9 PO (14:21)
--- NOTE | 2019-03-12 14:57 | CONS ---
Consult Date/Type/Reason Admit Date/Time Mar 09, 2019 at 00:09 Initial Consult Date Type of Consult Pulmonary Date/Time of Note DATE: 03/12/19 TIME: 14:50 Subjective Improved diarrhea clinically improved. Objective Vital Signs Date Temp Pulse Resp B/P (MAP) Pulse Ox O2 O2 Flow FiO2 Time Delivery Rate 03/12/19 98.2 81 16 118/58 98 08:59 (78) 03/12/19 21 05:41 03/11/19 Room Air 14:50 Intake and Output 03/11/19 03/11/19 03/12/19 1515:00 23:00 07:00 IntakeIntake Total 890 ml 220 ml 1000 ml OutputOutput Total 550 ml 150 ml BalanceBalance 340 ml 70 ml 1000 ml Exam GENERAL: Well-nourished, well-developed gentleman, comfortable at rest, in no acute distress. VITAL SIGNS: NECK: Supple. No JVD or lymphadenopathy. CARDIAC: S1, S2. No added sounds. CHEST: Diminished air entry bilaterally. ABDOMEN: Soft, nontender. No guarding or rebound. EXTREMITIES: No cyanosis, clubbing or edema. NEUROLOGIC: Grossly intact. No focal deficits Vent Setting Fraction of Inspired Oxygen pe: 21 Results/Medications Result Diagram: 03/12/19 0515 03/12/19 0515 Results 24 hrs Laboratory Tests Test 03/12/19 05:15 White Blood Count 6.5 # Red Blood Count 2.73 L Hemoglobin 8.3 L Hematocrit 24.8 L Mean Corpuscular Volume 90.8 Mean Corpuscular Hemoglobin 30.4 Mean Corpuscular Hemoglobin Concent 33.5 Red Cell Distribution Width 14.7 H Platelet Count 172 Mean Platelet Volume 9.5 Immature Granulocytes % 0.500 H Neutrophils % 58.6 Lymphocytes % 14.6 L Monocytes % 6.6 Eosinophils % 18.8 H Basophils % 0.9 Nucleated Red Blood Cells % 0.0 Immature Granulocytes # 0.030 Neutrophils # 3.8 Lymphocytes # 1.0 Monocytes # 0.4 Eosinophils # 1.2 H Basophils # 0.1 Nucleated Red Blood Cells # 0.0 Sodium Level 144 Potassium Level 3.7 Chloride Level 115 H Carbon Dioxide Level 19 L Anion Gap 10 Blood Urea Nitrogen 21 H Creatinine 2.51 H Est Glomerular Filtrat Rate mL/min Glucose Level 101 Calcium Level 8.3 L Medications Current Medications Vancomycin HCl (Vanco Iv Per Pharmacy) VANCOMYCIN PER PHARMACY PER PROTOCOL XX ; Start 03/09/19 at 03:00 Cefepime HCl 50 ml @ 100 mls/hr DAILY IVPB Last administered on 03/12/19 08:25; Admin Dose 100 MLS/HR; Start 03/09/19 at 09:00 Albuterol (Proventil 0.083% (Neb)) 1.25 mg Q4H RESP THERAPY HHN Last administered on 03/12/19 13:02; Admin Dose 1.25 MG; Start 03/09/19 at 05:00 Montelukast Sodium (Singulair) 10 mg HS PO Last administered on 03/11/19 20:39; Admin Dose 10 MG; Start 03/09/19 at 21:00 Tamsulosin HCl (Flomax) 0.4 mg HS PO Last administered on 03/11/19 20:40; Admin Dose 0.4 MG; Start 03/09/19 at 21:00 Amlodipine Besylate (Norvasc) 5 mg DAILY PO Last administered on 03/12/19 08:25; Admin Dose 5 MG; Start 03/09/19 at 09:00 Fluticasone/ Vilanterol (Breo Ellipta 100-25 Mcg Inh) 1 inh DAILY INH Last administered on 03/12/19 08:25; Admin Dose 1 INH; Start 03/09/19 at 09:00 Pantoprazole (Protonix Tab) 40 mg DAILY@06 PO Last administered on 03/12/19at 0 6:34; Admin Dose 40 MG; Start 03/10/19 at 06:00 Epoetin Chase-epbx (Retacrit (Esrd)) 10,000 unit TuThSa@1700 SC Last administered on 03/11/19 16:09; Admin Dose 10,000 UNIT; Start 03/09/19 at 17:00 Sodium Bicarbonate (Sodium Bicarbonate Tab) 650 mg TID PO Last administered on 03/12/19 13:46; Admin Dose 650 MG; Start 03/12/19 at 13:00 Miscellaneous Information (*Rx Drug Level Order Reminder*) 1 0500 ONCE XX ; Start 03/13/19 at 05:00; Stop 03/13/19 at 05:01 Assessment/Plan Hospital Course (Demo Recall) IMPRESSION 1. Bronchiectasis was likely new infiltrate. 2. Status post recent renal biopsy for renal insufficiency. 3. Chronic kidney disease. Worsening metabolic acidosis. 4. Recent diarrhea, generalized weakness, unclear etiology. Plan: dc planning po antibiotics. f/u Dr Caron SETHI,DIAMOND Vuong MD, [facility] Mar 12, 2019 14:57
--- NOTE | 2019-03-12 21:16 | DS ---
DATE OF ADMISSION: 03/09/2019 DATE OF DISCHARGE: 03/12/2019 DISCHARGE DIAGNOSES: 1. New right middle lobe infiltrate. 2. Acute on chronic renal failure. 3. Gastroenteritis. 4. Anemia. 5. Chronic obstructive pulmonary disease. CONSULTANTS: 1. Pulmonary, Dr. Monroy. 2. Renal, Dr. Rice. HISTORY OF PRESENT ILLNESS: The patient is an 83-year-old [place] male with multiple medical proble ms including COPD and chronic renal failure who complained of nausea, vomiting, diarrhea starting Sun day evening. The patient has been in his usual state of health up until after eating at a [employer] in the evening, less than an hour later, the patient developed watery diarrhea, nausea, vom iting and abdominal pain. Diarrhea was multiple and watery. No bright red blood per rectum or melen a. Abdominal pain felt improved after bowel movement, but the patient has had repeated episodes. No others who ate at the restaurant were ill. The patient has not had any raw foods, recent travel or camping. He denies any cold or flu symptoms. The patient reports symptoms have persisted and became increasingly fatigued. He denied any chest pain, shortness of breath, coughing, fever, chills, or n ight sweats. The patient's appetite had decreased. The patient presented to the ER and was found to have a right middle lobe infiltrate, which was new. He was given IV antibiotics, hydrated and admit juan j for further management. PHYSICAL EXAMINATION ON ADMISSION: VITAL SIGNS: Notable for temperature 97.8, pulse 68, blood pressure 137/68, pulse ox 98% on room air . GENERAL APPEARANCE: The patient is a thin [place] male in no acute distress. He appeared nontoxic. HEENT: Normocephalic, atraumatic. Sclerae anicteric. Oropharynx is clear. NECK: Supple without adenopathy. LUNGS: A few bibasilar crackles, otherwise clear. CARDIAC: Regular rate and rhythm. ABDOMEN: Bowel sounds were present. Abdomen is soft, nontender and nondistended. EXTREMITIES: Without cyanosis, clubbing, or edema. DATA: On admission was notable for white count of 8.2, hemoglobin 10, hematocrit 30 and platelets 22 3. Sodium 143, potassium 3.7, chloride 111, bicarbonate 17, BUN 55, creatinine 3.56 with a glucose o f 94, AST 21, ALT 11 and albumin 4.5. Chest x-ray showed bibasilar densities, which were stable. De creased right pleural effusion compared to previous. CT of the abdomen showed a small hemorrhage connor r recent biopsy site for a kidney biopsy, diffuse ileus, new right middle lobe infiltrate, bilateral lower lobe bronchiectasis, which are stable. HOSPITAL COURSE: As follows: 1. Right middle lobe infiltrate. The patient was started on IV antibiotics consisting of vancomycin and Zosyn. The patient was followed clinically. He was seen in pulmonary consultation by Dr. Snehal anna. The patient remained afebrile with no leukocytosis and clinically improved by time of discharge. He will continue on Levaquin to complete a 10-day course and 250 mg every other day. He will follo w up with pulmonary. 2. Gastroenteritis. The patient with episodes of diarrhea, C. diff was negative. Diarrhea did reso lve prior to discharge. The patient was hydrated and symptomatically improved. 3. Acute on chronic renal failure. The patient with a history of IgA nephropathy and nephrosclerosi s. He patient had recent kidney biopsy. The patient's creatinine initially in mid 3s improved with some hydration. He was also given Epogen and he will continue as an outpatient with close renal foll owup. 4. Anemia as noted above, patient given Epogen and will continue as an outpatient with Dr. Li juarez and with close monitoring of his labs. 5. Chronic obstructive pulmonary disease. Continue on his inhalers. Discharged patient home. DISCHARGE MEDICATIONS: 1. Levaquin 250 mg q.48 hours for 6 days. 2. Bicarbonate 650 mg p.o. t.i.d. 3. Omeprazole 40 mg daily. 4. Singulair 10 mg daily. 5. Flomax 0.4 mg daily. 6. Epogen at the direction of Dr. Rice. 7. Norvasc 5 mg daily. 8. Breo 1 inhalation daily. 9. Albuterol p.r.n. Dictated By: BALBINA NICOLE/ALLYSSA Conf#: [id number] DID#: [id number]
== END 2019-03-12 15:42 | disposition home or self-care (01) | DRG 682 ==
LOC: E/R 20:59 → PP2 03-09 00:09 → EDBEDREQSVC 03-09 00:41
PROVIDERS: ADMIT Internal Medicine; ATTEND Internal Medicine
DX: N17.9 Acute kidney failure, unspecified (principal); J18.1 Lobar pneumonia, unspecified organism; J44.0 Chronic obstructive pulmonary disease with (acute) lower respiratory infection; K52.9 Noninfective gastroenteritis and colitis, unspecified; N18.4 Chronic kidney disease, stage 4 (severe); N02.8 Recurrent and persistent hematuria with other morphologic changes; N40.0 Benign prostatic hyperplasia without lower urinary tract symptoms; E78.5 Hyperlipidemia, unspecified; K21.9 Gastro-esophageal reflux disease without esophagitis; D47.2 Monoclonal gammopathy; D63.1 Anemia in chronic kidney disease; Z87.891 Personal history of nicotine dependence
CPT/HCPCS: 36415; 71045; 74176; 80048; 80053; 80202; 81001; 82728; 83540; 83690; 83735; 84100; 84145; 85025; 87075; 94640; 94664; 96374; 96375; J0692; J2270; J2405; J3370; J3480; J7040; J7050; Q5105

== ENCOUNTER 2019-07-19 16:56 | Emergency (ER) | payer MEDICARE, OTHER ==
[~2019-07-19] VITALS: Ht 172.7 cm; Wt 53.2 kg
[~2019-07-19 16:56] MED LIST changes: +AMLO-145 PO; +DESO15CR9 TOP; +FLUT1AER INHALATION; +IBUP-1561 PO; +LEVO250T9 PO; +MONT10TA24 PO; +OMEP40CA38 PO; -OMEP40CA6 PO
[2019-07-19 17:05] VITALS: Ht 172.7 cm; Wt 53.2 kg
[2019-07-19 20:19] VITALS: BP 132/78; PULSE 78; RESP 14
== END 2019-07-19 20:20 | disposition home or self-care (01) ==
LOC: E/R 16:56
DX: S10.81XA Abrasion of other specified part of neck, initial encounter (principal); J44.9 Chronic obstructive pulmonary disease, unspecified; I12.9 Hypertensive chronic kidney disease with stage 1 through stage 4 chronic kidney disease, or unspecified chronic kidney disease; N18.9 Chronic kidney disease, unspecified; R31.9 Hematuria, unspecified; V43.62XA Car passenger injured in collision with other type car in traffic accident, initial encounter; Z87.891 Personal history of nicotine dependence
CPT/HCPCS: 71045; 81003